=== PATIENT | female | born 1950 | race Caucasian/White ===

== ENCOUNTER → 2020-01-31 | Outpatient (CLI) | payer MEDICARE ==
[~2020-01-31] MED LIST: GABA-1171 PO
--- NOTE | 2020-02-02 23:26 | ECWPNPC ---
PATIENT NAME: DONNA CLINTON : 1950 GENDER: FEMALE VISIT DATE: 01/31/2020 DISCHARGE DATE: 01/31/20 1027 VISIT LOCKED DATE TIME: PHYSICIAN: KLAUS RAYGOZA RESOURCE: KLAUS RAYGOZA REASON FOR APPOINTMENT 1. LUMBAR SPINE HISTORY OF PRESENT ILLNESS GENERAL: - 69-YEAR-OLD FEMALE IN FOR INITIAL PAIN CONSULT. PATIENT HAS COMPLAINTS OF LOWER BACK PAIN RATING IT AT A 10 OUT OF 10 AND DESCRIBING IT SHOOTING. PATIENT EXPERIENCED A FALL IN OCTOBER WHICH WAS AN EXACERBATION OF HER LOW BACK PAIN. PATIENT HAS NOT HAD INJECTIONS IN THE PAST FOR HER PAIN HOWEVER SHE WAS STARTED ON OXYCODONE AND ADMITS THAT THIS MEDICATION HAS BEEN EFFECTIVE IN MANAGING HER PAIN. SHE FURTHER ADMITS TO A CURRENT UTI FOR WHICH SHE IS TAKING CIPROFLOXACIN FOR SHE WILL COMPLETE HER CIPRO COURSE ON FEBRUARY 04. FALL RISK SCREENING: SCREENING :ONE FALL WITHOUT INJURY IN THE PAST YEAR PAIN SCREENING: PATIENT HAS A COMPLAINT OF ACUTE OR CHRONIC PAIN :YES LOCATION OF PAIN:LOW BACK INTENSITY OF PAIN (SCALE OF 1 TO 10):10 WHAT DOES YOUR PAIN FEEL LIKE:SHOOTING DURATION:CONTINOUS, CONSTANT, ALL DAY, MAINLY DURING THE NIGHT, AWAKENS FROM SLEEP PAIN IS INCREASED BY:ACTIVITIES, PROLONGED STANDING PAIN IS DECREASED BY:USE OF PAIN MEDICATIONS TYLENOL PLAN/GOALS/TREATMENT/INTERVENTION/FOLLOW UP:SEE PLAN NURSING NOTE: - -. PAIN CENTER INTAKE QUESTIONS: DO YOU HAVE A HISTORY OF MRSA? :NO DO YOU TAKE A BLOOD THINNERS? :NO DO YOU HAVE ANY BLEEDING DISORDERS? :NO ANY NEW NUMBNESS OR WEAKNESS IN YOUR LEGS OR ARMS? :NO ANY PACEMAKER,DEFIBRILLATOR, OR DORSAL COLUMN STIMULATOR? :NO DO YOU HAVE ANY RASHES OR OPEN SORES? :NO ARE YOU ALLERGIC TO IV DYE? :NO ARE YOU DIABETIC? :NO ANY NEW PROBLEMS WITH YOUR MEDICATIONS? :NO HAVE YOU RECEIVED A VACCINE IN THE PAST 30 DAYS? :NO DO YOU PLAN TO RECEIVE A VACCINE IN THE NEXT 21 DAYS? :NO DO YOU NEED ANY PRESCRIPTION? :NO DO YOU TAKE ANY IMMUNOSUPPRESSIVE MEDICATIONS? :NO CURRENT MEDICATIONS TAKING NAPROXEN 500 MG TABLET DELAYED RELEASE 1 TABLET ORALLY TWICE A DAY TAKING CYCLOBENZAPRINE HCL 10 MG TABLET 1 TABLET AT BEDTIME NEEDED ORALLY THREE TIMES DAILY TAKING LOSARTAN POTASSIUM 50 MG TABLET 1 TABLET ORALLY ONCE A DAY TAKING LORAZEPAM 1 MG TABLET 1 TABLET AT BEDTIME NEEDED ORALLY ONCE A DAY, NOTES: UNSURE OF DOSAGE TAKING FUROSEMIDE 20 MG TABLET 1 TABLET ORALLY ONCE A DAY, NOTES: UNSURE OF USAGE TAKING CORTISONE SHOTS 3-4MONTHS MEDICATION LIST REVIEWED AND RECONCILED WITH THE PATIENT PAST MEDICAL HISTORY HYPERTENSION ANXIETY DEPRESSION ALLERGIES N.K.D.A. SURGICAL HISTORY NO SURGICAL HISTORY DOCUMENTED. FAMILY HISTORY FATHER: MOTHER: SON(S): ALIVE DAUGHTER(S): ALIVE 2 SON(S) , 2 DAUGHTER(S) - HEALTHY. SOCIAL HISTORY GENERAL: TOBACCO USE ARE YOU A:NONSMOKER LATEX QUESTIONNAIRE LATEX ALLERGY : HAVE YOU EVER DEVELOPED ANY TYPE OF REACTION AFTER HANDLING LATEX PRODUCTS SUCH RUBBER GLOVES, CONDOMS, DIAPHRAGMS, BALLOONS, SOCKS, OR UNDERWEAR?NO LATEX ALLERGY : HAVE YOU EVER DEVELOPED ANY TYPE OF REACTION DURING OR AFTER DENTAL APPOINTMENT, VAGINAL/RECTAL EXAMINATION, SURGICAL PROCEDURE, OR ANY OTHER EXPOSURE?NO LATEX RISK : HAVE YOU EVER HAD ANY DIFFICULTY BREATHING OR HIVES AFTER EATING OR HANDLING ANY FRUITS, OR VEGETABLES; SUCH KIWI, BANANAS, STONE FRUITS, OR CHESTNUTSNO LATEX RISK : DO YOU HAVE A PREVIOUS PERSONAL HISTORY OF MORE THAN NINE SURGERIES, SPINA BIFIDA, OR REPEATED CATHERIZATIONS? NO LATEX RISK : ARE YOU FREQUENTLY EXPOSED TO LATEX PRODUCTS IN YOUR OCCUPATION?NO DATE ASKED : 01/31/2020 ALCOHOL SCREENING DID YOU HAVE A DRINK CONTAINING ALCOHOL IN THE PAST YEAR?NO POINTS0 INTERPRETATIONNEGATIVE RECREATIONAL DRUG USE DRUG USE?NO CAFFEINE CAFFEINE USE?YES HOW OFTEN AND HOW MUCH? OCCASIONALLY LANGUAGE LANGUAGES SPOKEN:UGANDAN LEARNING BARRIERS / SPECIAL NEEDS CHANGE FROM LAST VISIT?NO BARRIERS TO LEARNING?NO HEARING IMPAIRED?NO VISION IMPAIRED?YES :CORRECTIVE LENSES COGNITIVELY IMPAIRED?NO READINESS TO LEARN?YES LEARNING PREFERENCES?NO LEARNING CAPABILITIES PRESENT?YES EMOTIONAL BARRIERS?NO SPECIAL DEVICES?YES :WALKER PROOF TECHNICIAN HELPER NEEDED?NO MARITAL STATUS: . NEW PATIENT PAIN DIARY PATIENT DESCRIBES PAIN :SHOOTING FROM 0-10, WHAT LEVEL IS YOUR PAIN TODAY?10 PAIN CLINIC PFS, CLERGY, PUBLIC HEALTH REFERRALS PFS REFERRAL NEEDED?NO CLERGY REFERRAL NEEDED?NO PUBLIC HEALTH REFERRAL NEEDED?NO WAS THE PROVIDER NOTIFIED OF ANY PERTINENT INFO?YES HAS THE PATIENT BEEN EDUCATED REGARDING HIS/HER PLAN OF CARE?YES HAS THE PATIENT BEEN EDUCATED REGARDING PAIN, THE RISK FOR PAIN, THE IMPORTANCE OF EFFECTIVE PAIN MANAGEMENT, AND THE PAIN ASSESSMENT PROCESS?YES DECLINES HOSPITALIZATION/MAJOR DIAGNOSTIC PROCEDURE NO HOSPITALIZATION HISTORY. REVIEW OF SYSTEMS CONSTITUTIONAL: ANY RECENT FEVER NO . CHILLS NO . WEIGHT CHANGE OF UNKNOWN REASONS NO . MUSCULOSKELETAL: ANY UNUSUAL JOINT PAIN OR SWELLING NOT MENTIONED NO . SYSTEMIC LUPUS NO . ANY NEUROMUSCULAR DISORDER NOT MENTIONED NO . LYME DISEASE NO . GASTROENTEROLOGY: ANY NEW CHANGE IN BOWEL CONTROL? NO . HISTORY OF LIVER DISORDER NOT MENTIONED NO . HISTORY OF UNUSUAL ABDOMINAL PAIN OR CRAMPING NOT MENTIONED NO . NO CONSTIPATION. GENITOURINARY: ANY NEW CHANGE IN BLADDER CONTROL? NO . ANY RENAL/KIDNEY CONDITON NOT MENTIONED NO . NEUROLOGY: HISTORY OF TBI NOT MENTIONED NO . OTHER NEW NUMBNESS OR PAIN PATTERNS NOT MENTIONED NO . NEW ONSET DIZZINESS OR NEUROLOGICAL CHANGES NOT MENTIONED NO . HISTORY OF SEVERE HEADACHES NOT MENTIONED NO . HISTORY OF STROKE OR NEUROLOGICAL DISORDER NOT MENTIONED NO . CARDIOLOGY: HEART SURGERY NO . CONGESTIVE HEART FAILURE/FLUID OVERLOAD NOT MENTIONED NO . HISTORY OF CHEST PAIN,IRREGULAR HEART BEAT NOT MENTIONED NO . RESPIRATORY: SHORTNESS OF BREATH ON EXERTION, WHEEZES, UNUSUAL COUGH NOT MENTIONED NO . ENDOCRINOLOGY: ADRENAL GLAND OR THYROID DISORDERS NOT MENTIONED NO . UNUSUAL URINATION, DIZZINESS OR LETHARGY NOT MENTIONED NO . VITAL SIGNS WT 255.0 LBS, HT 50 IN, BMI 71.71 INDEX, BP 143/66 MM HG, HR 106 /MIN, RR 18 /MIN, TEMP 97.0 F, OXYGEN SAT % 97%, SAFE IN ENV? (Y/N) Y, NA INITIALS AW [id number] ASUMADU CLINICAL TRIAL MANAGER. EXAMINATION GENERAL EXAMINATION: GENERALNO ACUTE DISTRESS, WELL NOURISHED AND HYDRATED. PSYCHAPPROPRIATE MOOD AND AFFECT . LUNGS:CLEAR TO AUSCULTATION BILATERALLY, NO WHEEZES, RHONCHI, RALES. HEART:NO MURMURS, REGULAR RATE AND RHYTHM. BACK: POINT TENDER LEFT SIJ, + GIANNA'S TEST LEFT SIDE. ASSESSMENTS SACROILIITIS, NOT ELSEWHERE CLASSIFIED - M46.1 TREATMENT SACROILIITIS, NOT ELSEWHERE CLASSIFIED NOTES: LEFT SIJ. CLINICAL NOTES: 69-YEAR-OLD FEMALE IN FOR NEW PATIENT CONSULT. GIVEN PRESENTING SYMPTOMS AND RESULTS PHYSICAL EXAMINATION RECOMMENDED LEFT SIJ WITH POSTPROCEDURAL FOLLOW-UP. FURTHER RECOMMENDED TIZANIDINE 2 MG 3 TIMES A DAY NEEDED. PATIENT HAS EXPRESSED UNDERSTANDING OF AND WAS IN AGREEMENT WITH TREATMENT PLAN. GIVEN TIME TO ASK QUESTIONS AND EXPRESS CONCERNS. OTHERS STOP CYCLOBENZAPRINE HCL TABLET, 10 MG, 1 TABLET AT BEDTIME NEEDED, ORALLY, THREE TIMES DAILY START TIZANIDINE HCL TABLET, 2 MG, 1 TABLET NEEDED, ORALLY, THREE TIMES A DAY, 10 DAYS, 30 TABLET PROCEDURE CODES FA211 ESTABILISHED PATIENT [facility] CHARGE DISPOSITION & COMMUNICATION FOLLOW UP POSTPROCEDURE (REASON: LEFT SIJ ) ELECTRONICALLY SIGNED BY KARY NGUYEN ON 02/02/2020 AT 07:51 AM EDT DISCLAIMER : THIS IS A VISIT SUMMARY EXTRACTED FROM THE [employer] CHART. IT IS NOT A COPY OF THE [employer] PROGRESS NOTE. ABBYD
== END ==
LOC: M PAIN 09:30
PROVIDERS: ATTEND Family Medicine
DX: M46.1 Sacroiliitis, not elsewhere classified (principal); Z79.899 Other long term (current) drug therapy

== ENCOUNTER → 2020-02-06 | Outpatient (CLI) | payer MEDICARE | LOC: M LABSMTC 10:01 | PROVIDERS: ATTEND Anesthesiology | DX: Z03.818 Encounter for observation for suspected exposure to other biological agents ruled out (principal) | CPT/HCPCS: C9803; U0003 ==

== ENCOUNTER → 2020-02-09 | Outpatient (CLI) | payer MEDICARE ==
[~2020-02-09] MED LIST changes: +BUPIVACAINE HCL 0.25% 30ML VIAL As Ordered ONE; +ISOVUE-M 300 61% 15ML VIAL As Ordered ONE; +LIDOCAINE 1% SDV 30ML VIAL As Ordered ONE; +NORCO, ANEXSIA 5/325MG TABLET (HYDROcodone/ACETAMINOPHEN) As Ordered ONE; +TRIAMCINOLONE ACETONIDE SUSP 40 MG/ML VIAL (J3301) As Ordered ONE; +diazePAM 5 MG TAB As Ordered ONE
--- NOTE | 2020-02-09 15:53 | REP ---
Left SI joint: Three views. History: SI joint injection for pain. 51 seconds of fluoroscopy time is reported. Findings: A sequence of three last image hold fluoroscopically obtained spot radiographs of the left SI joint document needle position and contrast injection associated with SI joint injection procedure. Electronically Signed by Singh Gage MD 02/09/2020 10:39 A
--- NOTE | 2020-02-16 00:56 | ECWPNPC ---
PATIENT NAME: DONNA CLINTON : 1950 GENDER: FEMALE VISIT DATE: 02/09/2020 DISCHARGE DATE: 02/09/20 1059 VISIT LOCKED DATE TIME: PHYSICIAN: FRAN MASON MD RESOURCE: FRAN MASON MD REASON FOR APPOINTMENT 1. LEFT SIJ/PAT DONE HISTORY OF PRESENT ILLNESS GENERAL: -. FALL RISK SCREENING: SCREENING :TWO OR MORE FALLS WITH INJURY IN THE PAST YEAR PAIN SCREENING: PATIENT HAS A COMPLAINT OF ACUTE OR CHRONIC PAIN :YES LOCATION OF PAIN:LOW BACK LEFT BUTTOCKS INTENSITY OF PAIN (SCALE OF 1 TO 10):10 WHAT DOES YOUR PAIN FEEL LIKE:ACHING, CONTINOUS, SHARP, STABBING, TENDER, SORE, SHOOTING, OTHER SPASMS/KNOT DURATION:CONTINOUS, CONSTANT, STEADY, ALL DAY, AWAKENS FROM SLEEP PAIN IS INCREASED BY:OTHERS PROLONGED SITTING, WALKING PAIN IS DECREASED BY: WARM SHOWER, HEAT AND ICE NURSING NOTE: -. PAIN CENTER INTAKE QUESTIONS: DO YOU HAVE A HISTORY OF MRSA? :NO DO YOU TAKE A BLOOD THINNERS? :NO DO YOU HAVE ANY BLEEDING DISORDERS? :NO ANY NEW NUMBNESS OR WEAKNESS IN YOUR LEGS OR ARMS? :NO ANY PACEMAKER,DEFIBRILLATOR, OR DORSAL COLUMN STIMULATOR? :NO DO YOU HAVE ANY RASHES OR OPEN SORES? :NO ARE YOU ALLERGIC TO IV DYE? :NO ARE YOU DIABETIC? :NO ANY NEW PROBLEMS WITH YOUR MEDICATIONS? :NO HAVE YOU RECEIVED A VACCINE IN THE PAST 30 DAYS? :NO DO YOU PLAN TO RECEIVE A VACCINE IN THE NEXT 21 DAYS? :NO DO YOU TAKE ANY IMMUNOSUPPRESSIVE MEDICATIONS? :NO ANY HISTORY OF SEIZURES? :NO ANY HISTORY OF CARDIAC ISSUES OR EVENTS? :NO DO YOU HAVE SLEEP APNEA? :NO ANY RECENT HEAD INJURY? :NO DO YOU HAVE ANY NEW INFECTIONS? :YES UTI-ASYMPTOMATIC AND WAS TREATED WITH CIPROFLOXIN IS THERE A CHANCE YOU COULD BE ? :NO ARE YOU BREAST FEEDING? :NO WHEN DID YOU LAST EAT? : -02/07 1800 WHEN DID YOU LAST DRINK? : -02/08 0630 WHAT DID YOU LAST DRINK? : -WATER NAME OF PERSON DRIVING YOU HOME? : -SERENA DO YOU HAVE ANY OTHER QUESTIONS OR CONCERNS? : NO CURRENT MEDICATIONS TAKING NAPROXEN 500 MG TABLET DELAYED RELEASE 1 TABLET ORALLY TWICE A DAY, NOTES: 02/07 0800 TAKING LOSARTAN POTASSIUM 50 MG TABLET 1 TABLET ORALLY ONCE A DAY, NOTES: 02/08 800 TAKING LORAZEPAM 0.5 MG TABLET 1 TAB ORALLY THREE TIMES DAILY NEEDED, NOTES: 02/08 800 TAKING CORTISONE SHOTS 3-4MONTHS, NOTES: NOVEMBER TAKING TIZANIDINE HCL 2 MG TABLET 1 TABLET NEEDED ORALLY THREE TIMES A DAY, NOTES: 02/07 2300 TAKING TRIAMTERENE-HCTZ 37.5-25 MG TABLET 1 TABLET IN THE MORNING ORALLY ONCE A DAY, NOTES: 02/08 800 TAKING ACETAMINOPHEN 500 MG CAPSULE 2 CAPS ORALLY EVERY 6 HRS NEEDED, NOTES: 02/07 2300 NOT-TAKING FUROSEMIDE 20 MG TABLET 1 TABLET ORALLY ONCE A DAY, NOTES: UNSURE OF USAGE MEDICATION LIST REVIEWED AND RECONCILED WITH THE PATIENT PAST MEDICAL HISTORY HYPERTENSION ANXIETY DEPRESSION LOW BACK PAIN/SACROILIITIS UTI ALLERGIES N.K.D.A. SURGICAL HISTORY D&C 1973 FAMILY HISTORY FATHER: MOTHER: SON(S): ALIVE DAUGHTER(S): ALIVE 2 SON(S) , 2 DAUGHTER(S) - HEALTHY. SOCIAL HISTORY GENERAL: TOBACCO USE ARE YOU A:NONSMOKER LATEX QUESTIONNAIRE LATEX ALLERGY : HAVE YOU EVER DEVELOPED ANY TYPE OF REACTION AFTER HANDLING LATEX PRODUCTS SUCH RUBBER GLOVES, CONDOMS, DIAPHRAGMS, BALLOONS, SOCKS, OR UNDERWEAR?NO LATEX ALLERGY : HAVE YOU EVER DEVELOPED ANY TYPE OF REACTION DURING OR AFTER DENTAL APPOINTMENT, VAGINAL/RECTAL EXAMINATION, SURGICAL PROCEDURE, OR ANY OTHER EXPOSURE?NO LATEX RISK : HAVE YOU EVER HAD ANY DIFFICULTY BREATHING OR HIVES AFTER EATING OR HANDLING ANY FRUITS, OR VEGETABLES; SUCH KIWI, BANANAS, STONE FRUITS, OR CHESTNUTSNO LATEX RISK : DO YOU HAVE A PREVIOUS PERSONAL HISTORY OF MORE THAN NINE SURGERIES, SPINA BIFIDA, OR REPEATED CATHERIZATIONS? NO LATEX RISK : ARE YOU FREQUENTLY EXPOSED TO LATEX PRODUCTS IN YOUR OCCUPATION?NO DATE ASKED : 02/08/2020 ALCOHOL SCREENING DID YOU HAVE A DRINK CONTAINING ALCOHOL IN THE PAST YEAR?NO POINTS0 INTERPRETATIONNEGATIVE RECREATIONAL DRUG USE DRUG USE?NO CAFFEINE CAFFEINE USE?YES HOW OFTEN AND HOW MUCH? OCCASIONALLY LANGUAGE LANGUAGES SPOKEN:GERMAN LEARNING BARRIERS / SPECIAL NEEDS CHANGE FROM LAST VISIT?NO BARRIERS TO LEARNING?NO HEARING IMPAIRED?NO VISION IMPAIRED?YES :CORRECTIVE LENSES COGNITIVELY IMPAIRED?NO READINESS TO LEARN?YES LEARNING PREFERENCES?NO LEARNING CAPABILITIES PRESENT?YES EMOTIONAL BARRIERS?NO SPECIAL DEVICES?YES :WALKER SHOE CEMENTER NEEDED?NO DOMESTIC VIOLENCE DO YOU FEEL SAFE IN YOUR ENVIRONMENT?YES MARITAL STATUS: . PAIN CLINIC PFS, CLERGY, PUBLIC HEALTH REFERRALS PFS REFERRAL NEEDED?NO CLERGY REFERRAL NEEDED?NO PUBLIC HEALTH REFERRAL NEEDED?NO HAS THE PATIENT BEEN EDUCATED REGARDING HIS/HER PLAN OF CARE?YES HAS THE PATIENT BEEN EDUCATED REGARDING PAIN, THE RISK FOR PAIN, THE IMPORTANCE OF EFFECTIVE PAIN MANAGEMENT, AND THE PAIN ASSESSMENT PROCESS?YES ADVANCE DIRECTIVE ADVANCE DIRECTIVE DISCUSSED WITH PATIENT:YES 02/08/2020 STATES SHE HAS HC-, SERENA [phone] AND LIVING WILL SHE WILL BRING THESE IN WITH HER 02/08 HOSPITALIZATION/MAJOR DIAGNOSTIC PROCEDURE CHILDBIRTH VITAL SIGNS WT 253.4 LBS, HT 50 IN, BMI 71.26 INDEX, BP 146/65 MM HG, HR 115 /MIN, RR 18 /MIN, TEMP 97.6 F, OXYGEN SAT % 98%, NA INITIALS SC 09:06, REVIEWED BY: BRAYAN. EXAMINATION GENERAL EXAMINATION: THE PATIENT IS ALERT, ORIENTED TIMES THREE AND COOPERATIVE. HEART SHOWS REGULAR RHYTHM, NO MURMURS AND NO GALLOPS. LUNGS ARE CLEAR TO AUSCULTATION. ASSESSMENTS SACROILIITIS, NOT ELSEWHERE CLASSIFIED - M46.1 (PRIMARY) SACROILIAC JOINT DYSFUNCTION - M53.3 TREATMENT SACROILIITIS, NOT ELSEWHERE CLASSIFIED [facility] FLUORO GUIDANCE (PAIN)[id number] MEDICATION: NORCO TABLET 5MG/325MG ORALLY (HYDROCODONE/ACETAMINOPHEN)MONA NELSON 02/09/2020 9:26:41 AM > VERIFIED HIRA CH 02/09/2020 9:28:53 AM > LOT [id number] EXP 04/2021 GIVEN MEDICATION: VALIUM TAB 5MG ORALLY (DIAZEPAM)MONA NELSON 02/09/2020 9:27:04 AM > VERIFIED HIRA CH 02/09/2020 9:29:41 AM > LOT [id number] EXP 10/01 GIVEN SALINE LOCKSOHIRA STANFORD 02/09/2020 9:41:50 AM > #22 SALINE LOCK STARTED IN LEFT HAND, 1ST ATTEMPT. FLUSHES EASILY WITH NORMAL SALINE, SITE WITHOUT REDNESS, SWELLING OR DRAINAGE. DSD APPLIED. BRAYAN SACROILIAC JOINT DYSFUNCTION [facility] FLUORO GUIDANCE (PAIN)[id number] PROCEDURES PAIN NURSING RECORD PRE-PROCEDURE IV SITE LEFT HAND, IV STARTED # 22, IV STARTED BY: Tracy CH RN, IV ATTEMPTS 1 PROCEDURE IN ROOM 0955, PHYSICIAN IN ROOM 1013, START 1017, FINISH 1019, PHYSICIAN OUT OF ROOM 1021, OUT OF ROOM 1030 VIA STRETCHER, STEROID KENALOG, O2 RA, ECG OTHER SINUS TACHYCARDIA, PATIENT SHIELDED YES, SAFETY STRAP YES, PREP CHLOROPREP, IV INFUSED N/A, DRESSING TEGADERM LOC: 1. ALERT, ORIENTED RESP: 1. REGULAR, NO DYSPNEA COLOR: 1. PINK SKIN: 1. WARM, DRY POSITION: 1. PRONE VITALS: 1000 117/80 102-18 94% 1015 121/84 101-18 96% 1040 127/77 101-18 97% DISCHARGE: POST PAIN 8, LEFT LOW BACK, DRESSING SITE DRY AND INTACT, IV DISCONTINUED, SITE CLEAR, CATHETER INTACT, GAIT OTHER 1040 PT STATES "I CAN HARDLY WALK", INDICATING HER LEFT GROIN. DR. MASON NOTIFIED, IN TO SPEAK WITH AND EVALUATE PATIENT. OK TO DISCHARGE WHEN PATIENT FEELS READY., TEACHING COMPLETED, PATIENT ACKNOWLEDGES UNDERSTANDING YES, PATIENT DISCHARGED AT 1057 PT AMBULATING WITH WHEELED WALKER, DENIES FEELING UNSTEADY OR WEAK. DISCHARGED PN SI PRE PROCEDURE DIAGNOSIS SACROILIITIS, SACROILIAC JOINT DYSFUNCTION POST PROCEDURE DIAGNOSIS SACROILIITIS, SACROILIAC JOINT DYSFUNCTION PROCEDURE LEFT SACROILIAC JOINT BLOCK SURGEON DR. FRAN MASON THERMOSPRAY OPERATOR NONE ANESTHESIA LOCAL PRE PROCEDURE NOTE THE PATIENT WITH HISTORY OF CHRONIC LOW BACK PAIN. I EVALUATED THE PATIENT AND REVIEWED THE CHART. I WENT OVER THE RISKS, ALTERNATIVES, AND BENEFITS ASSOCIATED WITH THIS PROCEDURE. I DISCUSSED THAT THE USE OF STEROIDS MAY CONTRIBUTE TO IMMUNOSUPPRESSION OF THE PATIENT'S BODY AGAINST INFECTIONS SUCH COVID-19. THE PATIENT IS AWARE OF THE POTENTIAL COMPLICATIONS ASSOCIATED WITH THIS VIRUS, INCLUDING, BUT NOT LIMITED TO, . I DISCUSSED THE USE OF DEXAMETHASONE INSTEAD OF KENALOG; HOWEVER, THE PATIENT WOULD LIKE TO MOVE FORWARD WITH KENALOG. THE PATIENT WOULD LIKE TO PROCEED AND GAVE CONSENT TO PERFORM THE PROCEDURE. THE PATIENT DENIES UNEXPLAINABLE WEIGHT LOSS, FEVER, CHILLS, OR NEW CHANGES IN URINARY OR BOWEL CONTROL. THE PATIENT IS COVID-19 NEGATIVE DESCRIPTION OF PROCEDURE THE PATIENT WAS BROUGHT TO THE PROCEDURE ROOM AND PLACED IN THE PRONE POSITION. THE LUMBOSACRAL AREA WAS CLEANED WITH CHLORAPREP SOLUTION AND DRAPED ASEPTICALLY. THE PROCEDURE WAS DONE UNDER STERILE CONDITIONS. I CHECKED LATERALITY AND THE LEVEL WHERE THE PROCEDURE WAS GOING TO BE PERFORMED WITH THE PATIENT AND THE SUPPORTING STAFF AT THE MOMENT OF THE TIME OUT IN THE PROCEDURE ROOM. UNDER FLUOROSCOPIC GUIDANCE, TARGET POINT WAS SELECTED AT THE LOWER BORDER OF THE LEFT SACROILIAC JOINT. TARGET POINT WAS SELECTED AFTER MEDIAL ROTATION AND TILT OF THE MAGNIFIER OF THE C-ARM. LIDOCAINE WAS USED TO NUMB THE SKIN AND SUBCUTANEOUS TISSUE BELOW IT. A SPINAL NEEDLE, 22-GAUGE, WAS ADVANCED UNDER FLUOROSCOPIC GUIDANCE AND FOLLOWING PATIENT FEEDBACK UNTIL THE TARGET AREA WAS TOUCHED. THE POSITION OF THE NEEDLE WAS VERIFIED WITH AP AND LATERAL VIEWS. AFTER PROPER POSITION OF THE NEEDLE WAS ACHIEVED, ISOVUE M DYE 30%, 0.25 ML, WAS INJECTED SHOWING SPREAD OF THE DYE. THEN, A SOLUTION OF 20 MG OF KENALOG WAS INJECTED IN THE LEFT JOINT WITH 3 ML OF BUPIVACAINE 0.125%. THERE WAS NO EVIDENCE OF BLOOD, PARESTHESIA OR CEREBROSPINAL FLUID DURING THE PROCEDURE. THE PATIENT WAS SENT TO THE RECOVERY ROOM. THE PATIENT WAS MOVING THE EXTREMITIES AND DOING WELL. THERE WAS NO COMPLICATION DURING THE PROCEDURE. EBL LESS THAN 5 ML FLUOROSCOPY TIME WAS 51 SECONDS POST PROCEDURE NOTE THE PROCEDURE DONE WAS DISCUSSED WITH THE PATIENT. THE PATIENT WILL BE SEEN IN A FOLLOW UP IN THE NEXT FEW WEEKS. I AM LOOKING FOR LONG LASTING PAIN RELIEF FOR THE PATIENT WITH THIS INTERVENTION. INSTRUCTIONS WERE GIVEN, QUESTIONS WERE ANSWERED, AND THE PATIENT EXPRESSED UNDERSTANDING AND AGREES WITH THE PLAN. THE PATIENT IS AWARE TO STAY HOME FOR THE NEXT WEEK, IF POSSIBLE, DUE TO COVID-19. I, VANESSA LOPEZ, DOCUMENTED THE ABOVE INFORMATION ACTING A SCRIBE FOR DR. MASON. I HAVE REVIEWED THE ABOVE DOCUMENT, WRITTEN BY VANESSA LOPEZ, METAL MINER BLASTING, AND I VERIFY THAT IT IS ACCURATE PROCEDURE CODES 15706 INJECT SACROILIAC JOINT, MODIFIERS: LT DISPOSITION & COMMUNICATION FOLLOW UP F/UP WITH MARKETING RECRUITER (REASON: POST LT SIJ) ELECTRONICALLY SIGNED BY FRAN MASON MD, MD ON 02/15/2020 AT 06:30 PM EDT DISCLAIMER : THIS IS A VISIT SUMMARY EXTRACTED FROM THE [employer] CHART. IT IS NOT A COPY OF THE [employer] PROGRESS NOTE. WALKER
== END ==
LOC: M PAIN 09:30
PROVIDERS: ATTEND Anesthesiology
DX: M46.1 Sacroiliitis, not elsewhere classified (principal); M53.3 Sacrococcygeal disorders, not elsewhere classified
CPT/HCPCS: G0260; J3301; Q9967

== ENCOUNTER → 2020-02-29 | Outpatient (CLI) | payer MEDICARE, OTHER ==
[~2020-02-29] MED LIST changes: -BUPIVACAINE HCL 0.25% 30ML VIAL As Ordered ONE; -ISOVUE-M 300 61% 15ML VIAL As Ordered ONE; -LIDOCAINE 1% SDV 30ML VIAL As Ordered ONE; -NORCO, ANEXSIA 5/325MG TABLET (HYDROcodone/ACETAMINOPHEN) As Ordered ONE; -TRIAMCINOLONE ACETONIDE SUSP 40 MG/ML VIAL (J3301) As Ordered ONE; -diazePAM 5 MG TAB As Ordered ONE
--- NOTE | 2020-03-02 01:39 | ECWPNPC ---
PATIENT NAME: DONNA CLINTON : 1950 GENDER: FEMALE VISIT DATE: 02/29/2020 DISCHARGE DATE: 02/29/20 1407 VISIT LOCKED DATE TIME: PHYSICIAN: KLAUS RAYGOZA RESOURCE: KLAUS RAYGOZA REASON FOR APPOINTMENT 1. POST LEFT SIJ HISTORY OF PRESENT ILLNESS GENERAL: - 69-YEAR-OLD FEMALE IN FOR POST LEFT SIJ FOLLOW-UP. SHE RATES HER PAIN PREPROCEDURE AT A 10 OUT OF 10 AND POSTPROCEDURE AT A 6-8 OUT OF 10. SHE DOES FEEL THE PROCEDURE WAS HELPFUL. TODAY SHE ADMITS TO INCREASED PAIN ON THE RIGHT SIDE. FALL RISK SCREENING: SCREENING :NO FALLS REPORTED IN THE LAST YEAR PAIN SCREENING: PATIENT HAS A COMPLAINT OF ACUTE OR CHRONIC PAIN :YES [id number]-09/10, [id number]-1/10, TODAY-01/18 LOCATION OF PAIN:LOW BACK PROCEDURE DONE ON LEFT SIDE INTENSITY OF PAIN (SCALE OF 1 TO 10):6 RIGHT SIDE HURTS TODAY WHAT DOES YOUR PAIN FEEL LIKE:SHOOTING DURATION:CONTINOUS, CONSTANT, ALL DAY PAIN IS DECREASED BY:USE OF PAIN MEDICATIONS MUSCLE RELAXER(TIZANIDINE), TYLENOL WITH ARTHRITIS PAIN HAS INTERFERED WITH THE FOLLOWING:BATHING/DRESSING, MOOD, WALKING ABILITY, HOUSEWORK, SLEEP, RELATIONSHIP WITH OTHERS, TOILETING PLAN/GOALS/TREATMENT/INTERVENTION/FOLLOW UP:SEE PLAN NURSING NOTE: PT. STATED PROCEDURE DID HELP FOR ABOUT 2-3 DAYS THE MOST, NOT MUSH OF AN IMPROVEMENT.-. PAIN CENTER INTAKE QUESTIONS: DO YOU HAVE A HISTORY OF MRSA? :NO DO YOU TAKE A BLOOD THINNERS? :NO DO YOU HAVE ANY BLEEDING DISORDERS? :NO ANY NEW NUMBNESS OR WEAKNESS IN YOUR LEGS OR ARMS? :NO ANY PACEMAKER,DEFIBRILLATOR, OR DORSAL COLUMN STIMULATOR? :NO DO YOU HAVE ANY RASHES OR OPEN SORES? :NO ARE YOU ALLERGIC TO IV DYE? :NO ARE YOU DIABETIC? :NO ANY NEW PROBLEMS WITH YOUR MEDICATIONS? :NO HAVE YOU RECEIVED A VACCINE IN THE PAST 30 DAYS? :YES IF SO WHAT VACCINE AND WHEN? CORTISONE SHOTS A WEEK AGO DO YOU PLAN TO RECEIVE A VACCINE IN THE NEXT 21 DAYS? :NO DO YOU NEED ANY PRESCRIPTION? :NO DO YOU TAKE ANY IMMUNOSUPPRESSIVE MEDICATIONS? :NO IS THERE A CHANCE YOU COULD BE ? :NO ARE YOU BREAST FEEDING? :NO CURRENT MEDICATIONS TAKING NAPROXEN 500 MG TABLET DELAYED RELEASE 1 TABLET ORALLY ONCE A DAY, NOTES: 02/08 800 TAKING LOSARTAN POTASSIUM 50 MG TABLET 1 TABLET ORALLY ONCE A DAY, NOTES: 02/08 800 TAKING LORAZEPAM 0.5 MG TABLET 1 TAB ORALLY ONCE DAILY, NOTES: 02/08 800 TAKING CORTISONE SHOTS 3-4MONTHS, NOTES: NOVEMBER TAKING TRIAMTERENE-HCTZ 37.5-25 MG TABLET 1 TABLET IN THE MORNING ORALLY ONCE A DAY, NOTES: 02/08 800 TAKING ACETAMINOPHEN 500 MG CAPSULE 2 CAPS ORALLY EVERY 6 HRS NEEDED, NOTES: 02/07 2300 TAKING TIZANIDINE HCL 2 MG TABLET 1 TABLET NEEDED ORALLY THREE TIMES A DAY, NOTES: 02/07 2300 NOT-TAKING FUROSEMIDE 20 MG TABLET 1 TABLET ORALLY ONCE A DAY, NOTES: UNSURE OF USAGE MEDICATION LIST REVIEWED AND RECONCILED WITH THE PATIENT PAST MEDICAL HISTORY HYPERTENSION ANXIETY DEPRESSION LOW BACK PAIN/SACROILIITIS UTI ALLERGIES N.K.D.A. SURGICAL HISTORY D&C 1973 FAMILY HISTORY FATHER: MOTHER: SON(S): ALIVE DAUGHTER(S): ALIVE 2 SON(S) , 2 DAUGHTER(S) - HEALTHY. SOCIAL HISTORY GENERAL: TOBACCO USE ARE YOU A:NONSMOKER LATEX QUESTIONNAIRE LATEX ALLERGY : HAVE YOU EVER DEVELOPED ANY TYPE OF REACTION AFTER HANDLING LATEX PRODUCTS SUCH RUBBER GLOVES, CONDOMS, DIAPHRAGMS, BALLOONS, SOCKS, OR UNDERWEAR?NO LATEX ALLERGY : HAVE YOU EVER DEVELOPED ANY TYPE OF REACTION DURING OR AFTER DENTAL APPOINTMENT, VAGINAL/RECTAL EXAMINATION, SURGICAL PROCEDURE, OR ANY OTHER EXPOSURE?NO LATEX RISK : HAVE YOU EVER HAD ANY DIFFICULTY BREATHING OR HIVES AFTER EATING OR HANDLING ANY FRUITS, OR VEGETABLES; SUCH KIWI, BANANAS, STONE FRUITS, OR CHESTNUTSNO LATEX RISK : DO YOU HAVE A PREVIOUS PERSONAL HISTORY OF MORE THAN NINE SURGERIES, SPINA BIFIDA, OR REPEATED CATHERIZATIONS? NO LATEX RISK : ARE YOU FREQUENTLY EXPOSED TO LATEX PRODUCTS IN YOUR OCCUPATION?NO DATE ASKED : 02/29/2020 ALCOHOL SCREENING DID YOU HAVE A DRINK CONTAINING ALCOHOL IN THE PAST YEAR?NO POINTS0 INTERPRETATIONNEGATIVE RECREATIONAL DRUG USE DRUG USE?NO CAFFEINE CAFFEINE USE?YES HOW OFTEN AND HOW MUCH? OCCASIONALLY LANGUAGE LANGUAGES SPOKEN:[place] LEARNING BARRIERS / SPECIAL NEEDS CHANGE FROM LAST VISIT?NO BARRIERS TO LEARNING?NO HEARING IMPAIRED?NO VISION IMPAIRED?YES COGNITIVELY IMPAIRED?NO :CORRECTIVE LENSES READINESS TO LEARN?YES LEARNING PREFERENCES?NO LEARNING CAPABILITIES PRESENT?YES EMOTIONAL BARRIERS?NO SPECIAL DEVICES?YES :WALKER INSET CUTTER NEEDED?NO DOMESTIC VIOLENCE DO YOU FEEL SAFE IN YOUR ENVIRONMENT?YES MARITAL STATUS: . PAIN CLINIC PFS, CLERGY, PUBLIC HEALTH REFERRALS PFS REFERRAL NEEDED?NO CLERGY REFERRAL NEEDED?NO PUBLIC HEALTH REFERRAL NEEDED?NO HAS THE PATIENT BEEN EDUCATED REGARDING HIS/HER PLAN OF CARE?YES HAS THE PATIENT BEEN EDUCATED REGARDING PAIN, THE RISK FOR PAIN, THE IMPORTANCE OF EFFECTIVE PAIN MANAGEMENT, AND THE PAIN ASSESSMENT PROCESS?YES ADVANCE DIRECTIVE ADVANCE DIRECTIVE DISCUSSED WITH PATIENT:YES STATES SHE HAS HC-, SERENA [phone] AND LIVING WILL SHE WILL BRING THESE IN WITH HER 02/08 HOSPITALIZATION/MAJOR DIAGNOSTIC PROCEDURE CHILDBIRTH REVIEW OF SYSTEMS CONSTITUTIONAL: ANY RECENT FEVER NO . CHILLS NO . WEIGHT CHANGE OF UNKNOWN REASONS NO . GASTROENTEROLOGY: NEW UNEXPLAINABLE CHANGES IN BOWEL CONTROL NO . CONSTIPATION NO . GENITOURINARY: ANY NEW CHANGE IN BLADDER CONTROL? NO . NEUROLOGY: NEW ONSET DIZZINESS OR NEUROLOGICAL CHANGES NOT MENTIONED NO . NEW NUMBNESS OR PAIN PATTERNS NOT MENTIONED AND PERTINENT TO TODAY'S VISIT NO . CARDIOLOGY: NEW CHEST PRESSURE NO . NEW CHEST PAIN NO . RESPIRATORY: UNEXPLAINABLE COUGH NO . NEW SHORTNESS OF BREATH NO . VITAL SIGNS WT 252.6 LBS, HT 50 IN, BMI 71.03 INDEX, BP 130/61 MM HG, HR 107 /MIN, RR 18 /MIN, TEMP 98.1 F, OXYGEN SAT % 97%, SAFE IN ENV? (Y/N) Y, NA INITIALS AW [id number] ASUMADU CHARGE AUTHORIZER. EXAMINATION GENERAL EXAMINATION: GENERALNO ACUTE DISTRESS, WELL NOURISHED AND HYDRATED. PSYCHAPPROPRIATE MOOD AND AFFECT . LUNGS:CLEAR TO AUSCULTATION BILATERALLY, NO WHEEZES, RHONCHI, RALES. HEART:NO MURMURS, REGULAR RATE AND RHYTHM. BACK:POINT TENDER BILATERAL SIJ. ASSESSMENTS SACROILIITIS, NOT ELSEWHERE CLASSIFIED - M46.1 (PRIMARY) TREATMENT SACROILIITIS, NOT ELSEWHERE CLASSIFIED START GABAPENTIN CAPSULE, 100 MG, 1 CAPSULE, ORALLY, THREE TIMES DAILY, 30 DAY(S), 90 NOTES: BILATERAL SIJ. CLINICAL NOTES: 69-YEAR-OLD FEMALE IN FOR POST LEFT SIJ FOLLOW-UP. GIVEN PRESENTING SYMPTOMS RECOMMEND BILATERAL SIJ WITH POST PROCEDURAL FOLLOW-UP. ALSO RECOMMENDED STARTING GABAPENTIN 100 MG 3 TIMES A DAY. PATIENT HAS EXPRESSED UNDERSTANDING OF AND WAS IN AGREEMENT WITH TREATMENT PLAN. GIVEN TIME TO ASK QUESTIONS AND EXPRESS CONCERNS. PROCEDURE CODES FA211 ESTABILISHED PATIENT [facility] CHARGE DISPOSITION & COMMUNICATION FOLLOW UP POSTPROCEDURE (REASON: BILATERAL SIJ) ELECTRONICALLY SIGNED BY KARY NGUYEN ON 03/01/2020 AT 09:11 AM EDT DISCLAIMER : THIS IS A VISIT SUMMARY EXTRACTED FROM THE [employer] CHART. IT IS NOT A COPY OF THE [employer] PROGRESS NOTE. MTDD
== END ==
LOC: M PAIN 13:15
PROVIDERS: ATTEND Family Medicine
DX: M46.1 Sacroiliitis, not elsewhere classified (principal)

== ENCOUNTER → 2020-03-30 | Outpatient (POV) | payer OTHER, MEDICARE | LOC: M PAIN 14:15 | PROVIDERS: ATTEND Anesthesiology | DX: M47.816 Spondylosis without myelopathy or radiculopathy, lumbar region (principal) ==

== ENCOUNTER → 2020-04-14 | Outpatient (CLI) | payer MEDICARE, OTHER | LOC: M LABSMTC 09:32 | PROVIDERS: ATTEND Anesthesiology | DX: Z20.828 Contact with and (suspected) exposure to other viral communicable diseases (principal) | CPT/HCPCS: C9803; U0003 ==

== ENCOUNTER → 2020-05-03 | Outpatient (CLI) | payer MEDICARE, OTHER | LOC: M PAIN 09:40 | PROVIDERS: ATTEND Family Medicine | DX: M53.3 Sacrococcygeal disorders, not elsewhere classified (principal); Z79.899 Other long term (current) drug therapy ==

== ENCOUNTER → 2020-05-19 | Outpatient (CLI) | payer MEDICARE, OTHER | LOC: M LABSMTC 09:35 | PROVIDERS: ATTEND Anesthesiology | DX: Z20.828 Contact with and (suspected) exposure to other viral communicable diseases (principal) | CPT/HCPCS: C9803; U0003 ==

== ENCOUNTER → 2020-05-24 | Outpatient (CLI) | payer MEDICARE, OTHER ==
[~2020-05-24] MED LIST changes: +BUPIVACAINE HCL 0.25% 30ML VIAL As Ordered ONE; +ISOVUE-M 300 61% 15ML VIAL As Ordered ONE; +LIDOCAINE 1% SDV 30ML VIAL As Ordered ONE; +TRIAMCINOLONE ACETONIDE SUSP 40 MG/ML VIAL (J3301) As Ordered ONE; +diazePAM 5MG TABLET As Ordered ONE
--- NOTE | 2020-05-26 02:57 | ECWPNPC ---
PATIENT NAME: DONNA CLINTON : 1950 GENDER: FEMALE VISIT DATE: 05/24/2020 DISCHARGE DATE: 05/24/20 1231 VISIT LOCKED DATE TIME: PHYSICIAN: FRAN MASON MD RESOURCE: FRAN MASON MD REASON FOR APPOINTMENT 1. SACROCOCCYGEAL BLOCK HISTORY OF PRESENT ILLNESS GENERAL: -. FALL RISK SCREENING: SCREENING :ONE FALL WITH INJURY IN THE PAST YEAR FELL OFF A CURB LANDING ON HER BACK PAIN SCREENING: PATIENT HAS A COMPLAINT OF ACUTE OR CHRONIC PAIN :YES LOCATION OF PAIN:LOW BACK INTENSITY OF PAIN (SCALE OF 1 TO 10):10 AVERAGE PAIN 10+ WHAT DOES YOUR PAIN FEEL LIKE:CONTINOUS, SHARP, SHOOTING DURATION:CONTINOUS, CONSTANT, AWAKENS FROM SLEEP PAIN IS INCREASED BY:ACTIVITIES PAIN IS DECREASED BY:SITTING WALKING TREATMENT/MEDICATIONS USED TO MANAGE PAIN:NONE LEVEL OF RELIEF FROM PAIN TREATMENTS IN THE PAST:50% PAIN HAS INTERFERED WITH THE FOLLOWING:WALKING ABILITY, SLEEP, ENJOYMENT OF LIFE NURSING NOTE: -. PAIN CENTER INTAKE QUESTIONS: DO YOU HAVE A HISTORY OF MRSA? :NO DO YOU TAKE A BLOOD THINNERS? :NO DO YOU HAVE ANY BLEEDING DISORDERS? :NO ANY NEW NUMBNESS OR WEAKNESS IN YOUR LEGS OR ARMS? :NO ANY PACEMAKER,DEFIBRILLATOR, OR DORSAL COLUMN STIMULATOR? :NO DO YOU HAVE ANY RASHES OR OPEN SORES? :NO ARE YOU ALLERGIC TO IV DYE? :NO ARE YOU DIABETIC? :NO ANY NEW PROBLEMS WITH YOUR MEDICATIONS? :YES GABAPENTIN BACLOFEN BOTH MAKES PT SLEEPY AND DOESN'T HELP PAIN HAVE YOU RECEIVED A VACCINE IN THE PAST 30 DAYS? :NO DO YOU PLAN TO RECEIVE A VACCINE IN THE NEXT 21 DAYS? :NO DO YOU NEED ANY PRESCRIPTION? :NO DO YOU TAKE ANY IMMUNOSUPPRESSIVE MEDICATIONS? :NO ANY HISTORY OF SEIZURES? :NO ANY HISTORY OF CARDIAC ISSUES OR EVENTS? :NO DO YOU HAVE SLEEP APNEA? :NO ANY RECENT HEAD INJURY? :NO DO YOU HAVE ANY NEW INFECTIONS? :NO IS THERE A CHANCE YOU COULD BE ? :NO ARE YOU BREAST FEEDING? :NO WHEN DID YOU LAST EAT? : 05/23 2100 WHEN DID YOU LAST DRINK? : 05/24 0600 WHAT DID YOU LAST DRINK? : WATER NAME OF PERSON DRIVING YOU HOME? : SERENA DO YOU HAVE ANY OTHER QUESTIONS OR CONCERNS? : NONE CURRENT MEDICATIONS TAKING NAPROXEN 500 MG TABLET DELAYED RELEASE 1 TABLET ORALLY ONCE A DAY, NOTES: 05/23 900 TAKING LOSARTAN POTASSIUM 50 MG TABLET 1 TABLET ORALLY ONCE A DAY, NOTES: 05/23 900 TAKING LORAZEPAM 0.5 MG TABLET 1 TAB ORALLY ONCE DAILY, NOTES: 04/23 900 TAKING CORTISONE SHOTS 3-4MONTHS, NOTES: 3 MONTHS AGO TAKING ACETAMINOPHEN 500 MG CAPSULE 2 CAPS ORALLY EVERY 6 HRS NEEDED, NOTES: 05/23 2200 TAKING GABAPENTIN 300 MG CAPSULE 1 CAPSULE ORALLY THREE TIMES DAILY, NOTES: 05/23 2200 TAKING TORSEMIDE 20 MG TABLET DIRECTED ORALLY TWICE DAILY, NOTES: 05/23 1500 TAKING BACLOFEN 20 MG TABLET 1 TABLET WITH FOOD OR MILK ORALLY EVERY 8 HRS NEEDED, NOTES: 05/23 2200 NOT-TAKING TRIAMTERENE-HCTZ 37.5-25 MG TABLET 1 TABLET IN THE MORNING ORALLY ONCE A DAY NOT-TAKING TIZANIDINE HCL 2 MG TABLET 1 TABLET NEEDED ORALLY THREE TIMES A DAY NOT-TAKING FUROSEMIDE 20 MG TABLET 1 TABLET ORALLY ONCE A DAY, NOTES: UNSURE OF USAGE MEDICATION LIST REVIEWED AND RECONCILED WITH THE PATIENT PAST MEDICAL HISTORY HYPERTENSION ANXIETY DEPRESSION LOW BACK PAIN/SACROILIITIS UTI ALLERGIES N.K.D.A. SURGICAL HISTORY D&C 1973 FAMILY HISTORY FATHER: MOTHER: SON(S): ALIVE DAUGHTER(S): ALIVE 2 SON(S) , 2 DAUGHTER(S) - HEALTHY. SOCIAL HISTORY GENERAL: TOBACCO USE ARE YOU A:NONSMOKER LATEX QUESTIONNAIRE LATEX ALLERGY : HAVE YOU EVER DEVELOPED ANY TYPE OF REACTION AFTER HANDLING LATEX PRODUCTS SUCH RUBBER GLOVES, CONDOMS, DIAPHRAGMS, BALLOONS, SOCKS, OR UNDERWEAR?NO LATEX ALLERGY : HAVE YOU EVER DEVELOPED ANY TYPE OF REACTION DURING OR AFTER DENTAL APPOINTMENT, VAGINAL/RECTAL EXAMINATION, SURGICAL PROCEDURE, OR ANY OTHER EXPOSURE?NO DATE ASKED : 02/29/2020 LATEX RISK : HAVE YOU EVER HAD ANY DIFFICULTY BREATHING OR HIVES AFTER EATING OR HANDLING ANY FRUITS, OR VEGETABLES; SUCH KIWI, BANANAS, STONE FRUITS, OR CHESTNUTSNO LATEX RISK : DO YOU HAVE A PREVIOUS PERSONAL HISTORY OF MORE THAN NINE SURGERIES, SPINA BIFIDA, OR REPEATED CATHERIZATIONS? NO LATEX RISK : ARE YOU FREQUENTLY EXPOSED TO LATEX PRODUCTS IN YOUR OCCUPATION?NO ALCOHOL SCREENING DID YOU HAVE A DRINK CONTAINING ALCOHOL IN THE PAST YEAR?NO POINTS0 INTERPRETATIONNEGATIVE RECREATIONAL DRUG USE DRUG USE?NO CAFFEINE CAFFEINE USE?YES HOW OFTEN AND HOW MUCH? OCCASIONALLY LANGUAGE LANGUAGES SPOKEN:FRISIAN LEARNING BARRIERS / SPECIAL NEEDS CHANGE FROM LAST VISIT?NO BARRIERS TO LEARNING?NO HEARING IMPAIRED?NO VISION IMPAIRED?YES :CORRECTIVE LENSES COGNITIVELY IMPAIRED?NO READINESS TO LEARN?YES LEARNING PREFERENCES?NO LEARNING CAPABILITIES PRESENT?YES EMOTIONAL BARRIERS?NO SPECIAL DEVICES?YES :WALKER PROGRESS DEVELOPER NEEDED?NO DOMESTIC VIOLENCE DO YOU FEEL SAFE IN YOUR ENVIRONMENT?YES MARITAL STATUS: . PAIN CLINIC PFS, CLERGY, PUBLIC HEALTH REFERRALS PFS REFERRAL NEEDED?NO CLERGY REFERRAL NEEDED?NO PUBLIC HEALTH REFERRAL NEEDED?NO HAS THE PATIENT BEEN EDUCATED REGARDING HIS/HER PLAN OF CARE?YES HAS THE PATIENT BEEN EDUCATED REGARDING PAIN, THE RISK FOR PAIN, THE IMPORTANCE OF EFFECTIVE PAIN MANAGEMENT, AND THE PAIN ASSESSMENT PROCESS?YES ADVANCE DIRECTIVE ADVANCE DIRECTIVE DISCUSSED WITH PATIENT:YES 05/24/20 STATES SHE HAS HCP-, SERENA [phone] AND LIVING WILL SHE WILL BRING THESE IN WITH HER HOSPITALIZATION/MAJOR DIAGNOSTIC PROCEDURE CHILDBIRTH D&C VITAL SIGNS WT 263.2 LBS, HT 50 IN, BMI 74.01 INDEX, BP 171/82 MM HG, HR 89 /MIN, RR 18 /MIN, TEMP 98.8 F, OXYGEN SAT % 97%, SAFE IN ENV? (Y/N) Y, NA INITIALS AW 0923, REVIEWED BY: AD. EXAMINATION GENERAL EXAMINATION: THE PATIENT IS ALERT, ORIENTED TIMES THREE AND COOPERATIVE. HEART SHOWS REGULAR RHYTHM, NO MURMURS AND NO GALLOPS. LUNGS ARE CLEAR TO AUSCULTATION. ASSESSMENTS COCCYODYNIA - M53.3 (PRIMARY) TREATMENT COCCYODYNIA START CARISOPRODOL TABLET, 350 MG, 1 TABLET NEEDED, ORALLY FOR SPASMS AND PAIN, EVERY 8 HOURS NEEDED MDD2, 5 DAYS, 10, REFILLS 0 [facility] FLUORO GUIDANCE (PAIN)[id number] OXYGEN AT 2 LITERS PER NASAL CANNULAVANESSA LOPEZ 05/24/2020 10:43:48 AM - 2 1/2 LITERS MEDICATION: VALIUM TAB 10MG ORALLY (DIAZEPAM)VICTORIA CARBONE 05/24/2020 9:46:42 AM > VERIFIED RISA BRADEN 05/24/2020 9:51:58 AM > LOT # [id number] EXP 10/2020 ADMINISTERED IV LACTATED RINGER'S AT RISA BARNES 05/24/2020 2:01:07 PM > TOTAL OF 125ML RL ADMINISTERED CLINICAL NOTES: ISTOP NUMBER [id number] CHECKED. OTHERS CLINICAL NOTES: 05/23/20 KAY LOTT, TRANSFORMER SHOP SUPERVISOR. PROCEDURES PAIN NURSING RECORD PRE-PROCEDURE IV SITE N/A, PRE-PROCEDURE ORAL MEDICATIONS SEE MEDICATION ORDERS : IV SITE N/A, PRE-PROCEDURE ORAL MEDICATIONS SEEN MEDICATION ORDERS PROCEDURE IN ROOM 1010 VIA STRETCHER, PHYSICIAN IN ROOM 1024, START 1029, FINISH 1051, PHYSICIAN OUT OF ROOM 1054, OUT OF ROOM 1107 VIA STRETCHER, STEROID KENALOG, O2 RA 2.5L/MIN ON AT 1040-OFF @ 1055, ECG NORMAL SINUS 1040 HR IN 60'S WITH OCC. PVC'S IV STARTED WITH 22G IN RIGHT HAND ON 1ST ATTEMPT. RL INFUSING WIDE OPEN PER DR. MASON. O2 ON 2.5 L/MIN VIA NC, PATIENT SHIELDED YES, SAFETY STRAP YES, PREP CHLOROPREP BY Rosamaria OSEI RN, IV INFUSED LACTATED RINGERS 125CC TOTAL, DRESSING TEGADERM BY DR. MASON LOC: RISA BRADEN 05/24/2020 10:02:19 AM > 1. ALERT, ORIENTED RESP: RISA BRADEN 05/24/2020 10:02:24 AM > 1. REGULAR, NO DYSPNEA COLOR: RISA BRADEN 05/24/2020 10:02:28 AM > 1. PINK SKIN: RISA BRADEN 05/24/2020 10:02:31 AM > 1. WARM, DRY POSITION: RISA BRADEN 05/24/2020 10:15:29 AM > 1. PRONE VITALS: RISA BRADEN 05/24/2020 10:15:49 AM > 145/86,96,18, 93% RISA BRADEN 05/24/2020 10:30:00 AM > 137/74,84,18, 93% RISA BRADEN 05/24/2020 10:43:53 AM >134/68, 74,18,97% (O2 2.5L/MIN) RISA BRADEN 05/24/2020 10:48:37 AM > 144/74,79, 18, 99%(O2 2.5L/MIN) RISA BRADEN 05/24/2020 10:50:40 AM > 160/84,82,18,98% O2 2.5L/MIN) SAMPSON,RISA 05/24/2020 10:57:39 AM >146/70,76,16,98% O2 OFF SAMPSON,RISA 05/24/2020 11:01:05 AM > 139/69,75,16,94% SAMPSON,RISA 05/24/2020 11:12:30 AM > 114/53,64,16,95% SAMPSON,RISA 05/24/2020 11:17:33 AM > 119/56,73,18,95% SAMPSON,RISA 05/24/2020 11:23:38 AM > 117/58,71,18,97% SAMPSON,RISA 05/24/2020 11:25:00 AM > 125/57,67,18,96% SAMPSON,[place] 05/24/2020 11:30:09 AM > 117/58,58,16,97% SAMPSON,[place] 05/24/2020 11:35:44 AM > 113/56,66,16,97% SAMPSON,[place] 05/24/2020 11:40:21 AM > 118/55,62,16,96% SAMPSON,[place] 05/24/2020 11:45:57 AM > 130/53,61,16,97% SAMPSON,[place] DENN[place] 05/24/2020 11:50:04 AM > 142/58,65,18,95% SAMPSON,[place] DENNIS 05/24/2020 12:03:31 PM > 122/57,60,16,98% SAMPSON,E[place] DENNIS 05/24/2020 12:10:16 PM > 122/57,61,18,94% NOTES 1024 DR. MASON AWARE OF RASH BETWEEN BUTTOCKS. AD 1040 HR DECREASED INTO THE 60'S, OCC. PVC'S, PT ASYMP. FOR DECREASED HEART RATE. IV STARTED PER ABOVE AND O2 APPLIED AD 1115 HR DOWN INTO THE HIGH 50'S, DR. MASON AWARE. IV AT KVO PER ORDER. 1125 DR. MASON INTO SEE PT. HR 58-PT ASYMP. AD [address] ALEX' NURSE, GIA, AND DISCUSSED WHAT PROCEDURE THE PT RECEIVED, BRADYCARDIA, PRESEDATE OF VAIUM AND TREATMENT PROVIDED. PT HAS AN APPT. THERE IN 2 WEEKS AND WILL BE INSTRUCTED TO GO TO ED OR UC FOR ANY CHEST PAIN OR NOT FEELING WELL. PT TO ALSO CALL DR. ALEX IF SHE FEELS SHE NEEDS TO SEE DR. ALEX SOONER. AD 1210 DR. MASON INTO SEE PT. OKAY TO DISCHARGE PT.AD DISCHARGE: POST PAIN 0-10+(WHEN HAVING SPASM), DRESSING SITE DRY AND INTACT, IV DISCONTINUED, SITE CLEAR, CATHETER INTACT, GAIT WHEELCHAIR USES WHEELING WALKER, TEACHING COMPLETED, PATIENT ACKNOWLEDGES UNDERSTANDING YES, PATIENT DISCHARGED AT 1230 : INTRA-OPERATIVE IMAGING INTERPRETATION WAS PERFORMED BY DR. MASON PRE PROCEDURE DIAGNOSIS 1. INFLAMMATION OF THE SACROCOCCYGEAL LIGAMENT. 2. COCCYDYNIA. POST PROCEDURE DIAGNOSIS 1. INFLAMMATION OF THE SACROCOCCYGEAL LIGAMENT. 2. COCCYDYNIA. PROCEDURE INJECTION OF THE RIGHT AND LEFT SACROCOCCYGEAL LIGAMENT. SURGEON DR. FRAN MASON BOOKKEEPING CLERK NONE ANESTHESIA LOCAL PRE PROCEDURE NOTE THE PATIENT HAS HISTORY OF LOW BACK PAIN. I EVALUATED THE PATIENT AND REVIEWED THE CHART. THE PATIENT IS AWARE OF THE POTENTIAL COMPLICATIONS INLCUDING BUT NOT LIMITED TO, INCLUDE INFECTIONS, VISCERAL PUNCTURE, INCLUDING RECTAL PUNCTURE. I DISCUSSED ALTERNATIVES AND THE PATIENT EXPRESSED WILLIINGNESS TO PROCEED. I DISCUSSED THAT THE USE OF STEROIDS MAY CONTRIBUTE TO IMMUNOSUPPRESSION OF THE PATIENT'S BODY AGAINST INFECTIONS SUCH COVID-19. THE PATIENT IS AWARE OF THE POTENTIAL COMPLICATIONS ASSOCIATED WITH THIS VIRUS, INCLUDING, BUT NOT LIMITED TO, . THE PATIENT DENIES UNEXPLAINABLE, WEIGHT LOSS, FEVER, CHILLS, OR CHANGES IN URINARY OR BOWEL CONTROL. THE PATIENT IS COVID-19 NEGATIVE DESCRIPTION OF PROCEDURE AFTER CONSENT WAS TAKEN, THE PATIENT WAS BROUGHT TO THE PROCEDURE ROOM AND PLACED IN THE PRONE POSITION. THE LUMBOSACRAL AREA WAS CLEANED WITH CHLORAPREP SOLUTION AND DRAPED ASEPTICALLY. THE PROCEDURE WAS DONE UNDER STERILE CONDITIONS. UNDER FLUOROSCOPIC GUIDANCE, THE TARGET WAS SELECTED AT THE RIGHT AND LEFT SACROCOCCYGEAL LIGAMENT. I CONFIRMED AGAIN WITH EVERYONE IN THE ROOM THE LATERALITY OF THE TARGET 1029. LIDOCAINE WAS USED TO NUMB THE SKIN AND THE SUBCUTANEOUS TISSUE BELOW IT. A 25 GAUGE NEEDLE WAS ADVANCED UNTIL WE REACHED THE RIGHT AND LEFT SACROCOCCYGEAL LIGAMENT. I DID AP AND LATERAL VIEWS. ISOVUE-M DYE 30%, 0.25 ML, WAS INJECTED SHOWING ADEQUATE SPREAD OF THE DYE. THEN A SOLUTION OF 30 ML OF BUPIVACAINE 0.125% WITH KENALOG 40 MG WAS INJECTED OVER THE AFFECTED STRUCTURE. THE MEDICATION WAS VERIFIED WITH THE NURSE. THERE WAS NO EVIDENCE OF BLOOD, PARESTHESIA OR CEREBROSPINAL FLUID. NO EVIDENCE OF VACUUM PHENOMENON OR VISCERAL PUNCTURE. THE PATIENT WAS SENT TO THE RECOVERY ROOM WHERE SHE WAS MOVING HER EXTREMITIES AND DOING WELL. THERE WERE NO COMPLICATIONS DURING THE PROCEDURE. EBL LESS THAN 5 ML. FLUOROSCOPY TIME WAS 15 SECONDS POST PROCEDURE NOTE THE PATIENT DEVELOPED SOME ARRHYTHMIA INCLUDING SOME PVCS AND REDUCTION OF HER HEART RATE. I DECIDED TO TAKE AN IV AND RUN LACTATED RINGERS AND GAVE THE PATIENT OXYGEN. I WILL INFORM THE PRIMARY CARE AFTER THE PROCEDURE. DEPENDING ON THE RESULT, WE SHOULD ORDER A PELVIC MRI WITH SPECIAL ATTENTION TO THE SACROCOCCYGEAL AREA. WE WILL NEED AN IV AND LACTATED RINGERS FOR EVERY PROCEDURE IN THE FUTURE. THE PATIENT WAS HAVING BAD SPASMS SO I PRESCRIBED HER A 5 DAY COURSE OF SOMA. I REVIEWED THE ISTOP. I REVIEWED WITH THE PATIENT HOW TO TAKE THE MEDICATION AND THE RISKS ASSOCIATED WITH THE MEDICATION, INCLUDING RESPIRATORY DEPRESSION WHICH CAN CAUSE CARDIOVASCULAR EVENTS OR EVEN . I EXPLAINED TO THE PATIENT NOT TO TAKE ALCOHOL WHILE TAKING THE MEDICATIONS. I AM LOOKING FOR LONG LASTING PAIN RELIEF WITH THIS INTERVENTION. INSTRUCTIONS WERE GIVEN. QUESTIONS WERE ANSWERED. THE PATIENT REPORTS UNDERSTANDING AND AGREES WITH THE PLAN. THERE WERE NO COMPLICATIONS DURING THE PROCEDURE. I, VANESSA LOPEZ, DOCUMENTED THE ABOVE INFORMATION ACTING A SCRIBE FOR DR. MASON. I HAVE REVIEWED THE ABOVE DOCUMENT, WRITTEN BY MICKIE SWARTZ, AND I VERIFY THAT IT IS ACCURATE PROCEDURE CODES 90346 INJ TENDON SHEATH/LIGAMENT, MODIFIERS: 50 [id number] NEEDLE LOCALIZATION BY XRAY, MODIFIERS: 26 DISPOSITION & COMMUNICATION FOLLOW UP FOLLOW UP WITH CORE DRILLER HELPER (REASON: POST SACROCOCCYGEAL ) ELECTRONICALLY SIGNED BY FRAN MASON MD, MD ON 05/25/2020 AT 12:57 PM EDT DISCLAIMER : THIS IS A VISIT SUMMARY EXTRACTED FROM THE [employer] CHART. IT IS NOT A COPY OF THE [employer] PROGRESS NOTE. MTDD
--- NOTE | 2020-05-29 08:52 | REP ---
DATE: 05/24/2020 FLUOROSCOPY GUIDED STUDY CLINICAL: Sacrococcygeal block TECHNIQUE: Intraoperative fluoroscopic imaging using portable C-arm technique. FINDINGS: Catheter and contrast overlies the sacrococcygeal region consistent with sacrococcygeal block. Total fluoroscopic time 15 seconds. IMPRESSION: Images consistent with sacrococcygeal block. [facility]
== END ==
LOC: M PAIN 09:00
PROVIDERS: ATTEND Anesthesiology
DX: M46.08 Spinal enthesopathy, sacral and sacrococcygeal region (principal); M53.3 Sacrococcygeal disorders, not elsewhere classified; I10 Essential (primary) hypertension; M46.1 Sacroiliitis, not elsewhere classified; F41.9 Anxiety disorder, unspecified; F32.9 Major depressive disorder, single episode, unspecified; M54.5 Low back pain; M62.830 Muscle spasm of back; G89.29 Other chronic pain; Z79.899 Other long term (current) drug therapy; Z79.1 Long term (current) use of non-steroidal anti-inflammatories (NSAID)
CPT/HCPCS: 20550; 77002; J3301; Q9967

== ENCOUNTER → 2020-06-07 | Outpatient (CLI) | payer MEDICARE, OTHER ==
[~2020-06-07] MED LIST changes: -BUPIVACAINE HCL 0.25% 30ML VIAL As Ordered ONE; -ISOVUE-M 300 61% 15ML VIAL As Ordered ONE; -LIDOCAINE 1% SDV 30ML VIAL As Ordered ONE; -TRIAMCINOLONE ACETONIDE SUSP 40 MG/ML VIAL (J3301) As Ordered ONE; -diazePAM 5MG TABLET As Ordered ONE
--- NOTE | 2020-06-09 01:46 | ECWPNPC ---
PATIENT NAME: DONNA CLINTON : 1950 GENDER: FEMALE VISIT DATE: 06/07/2020 DISCHARGE DATE: 06/07/20 1053 VISIT LOCKED DATE TIME: PHYSICIAN: KLAUS RAYGOZA RESOURCE: KLAUS RAYGOZA REASON FOR APPOINTMENT 1. POST SACROCOCCYGEAL HISTORY OF PRESENT ILLNESS GENERAL: 70-YEAR-OLD FEMALE IN FOR POST SACROCOCCYGEAL BLOCK FOLLOW-UP. SHE FEELS THE PROCEDURE WAS SUCCESSFUL OVERALL RATING HER PAIN PREPROCEDURE AT A 10 OUT OF 10 AND POSTPROCEDURE AT A 0 OUT OF 10. SHE FURTHER STATES THE PROCEDURE CONTINUES TO HELP HER TODAY. SHE RATES HER PAIN CURRENTLY AT A 4 OUT OF 10 AND DESCRIBES IT BURNING, SHARP, AND STABBING. FALL RISK SCREENING: SCREENING :ONE FALL WITH INJURY IN THE PAST YEAR HAD A FALL IN OCTOBER WHICH BROUGHT HER HERE. PAIN SCREENING: PATIENT HAS A COMPLAINT OF ACUTE OR CHRONIC PAIN :YES LOCATION OF PAIN:LOW BACK INTENSITY OF PAIN (SCALE OF 1 TO 10):4 WHAT DOES YOUR PAIN FEEL LIKE:BURNING, SHARP, STABBING DURATION:INTERMITTENT PAIN IS INCREASED BY:OTHERS SITTING AND WHEN SLEEPING AWAKENS HER NURSING NOTE: -. PAIN CENTER INTAKE QUESTIONS: DO YOU HAVE A HISTORY OF MRSA? :NO DO YOU TAKE A BLOOD THINNERS? :NO DO YOU HAVE ANY BLEEDING DISORDERS? :NO ANY NEW NUMBNESS OR WEAKNESS IN YOUR LEGS OR ARMS? :NO ANY PACEMAKER,DEFIBRILLATOR, OR DORSAL COLUMN STIMULATOR? :NO DO YOU HAVE ANY RASHES OR OPEN SORES? :NO ARE YOU ALLERGIC TO IV DYE? :NO ARE YOU DIABETIC? :NO ANY NEW PROBLEMS WITH YOUR MEDICATIONS? :NO HAVE YOU RECEIVED A VACCINE IN THE PAST 30 DAYS? :NO DO YOU PLAN TO RECEIVE A VACCINE IN THE NEXT 21 DAYS? :NO DO YOU NEED ANY PRESCRIPTION? :YES PT HAS EMPTY SOMA BOTTLES AND WANTS TO DISUCSSS THE BACLOFEN "ITS NOT WORKING" DO YOU TAKE ANY IMMUNOSUPPRESSIVE MEDICATIONS? :NO IS THERE A CHANCE YOU COULD BE ? :NO ARE YOU BREAST FEEDING? :NO CURRENT MEDICATIONS TAKING NAPROXEN 500 MG TABLET DELAYED RELEASE 1 TABLET ORALLY ONCE A DAY TAKING LOSARTAN POTASSIUM 50 MG TABLET 1 TABLET ORALLY ONCE A DAY TAKING CORTISONE SHOTS 3-4MONTHS, NOTES: 3 MONTHS AGO TAKING ACETAMINOPHEN 500 MG CAPSULE 2 CAPS ORALLY EVERY 6 HRS NEEDED TAKING GABAPENTIN 300 MG CAPSULE 1 CAPSULE ORALLY THREE TIMES DAILY TAKING TORSEMIDE 20 MG TABLET DIRECTED ORALLY TWICE DAILY TAKING BACLOFEN 20 MG TABLET 1 TABLET WITH FOOD OR MILK ORALLY EVERY 8 HRS NEEDED TAKING CARISOPRODOL 350 MG TABLET 1 TABLET NEEDED ORALLY FOR SPASMS AND PAIN DAILY MDD1 NOT-TAKING LORAZEPAM 0.5 MG TABLET 1 TAB ORALLY ONCE DAILY NOT-TAKING TRIAMTERENE-HCTZ 37.5-25 MG TABLET 1 TABLET IN THE MORNING ORALLY ONCE A DAY NOT-TAKING TIZANIDINE HCL 2 MG TABLET 1 TABLET NEEDED ORALLY THREE TIMES A DAY NOT-TAKING FUROSEMIDE 20 MG TABLET 1 TABLET ORALLY ONCE A DAY, NOTES: UNSURE OF USAGE MEDICATION LIST REVIEWED AND RECONCILED WITH THE PATIENT PAST MEDICAL HISTORY HYPERTENSION ANXIETY DEPRESSION LOW BACK PAIN/SACROILIITIS UTI ALLERGIES N.K.D.A. SURGICAL HISTORY D&C 1974 FAMILY HISTORY FATHER: MOTHER: SON(S): ALIVE DAUGHTER(S): ALIVE 2 SON(S) , 2 DAUGHTER(S) - HEALTHY. SOCIAL HISTORY GENERAL: TOBACCO USE ARE YOU A:NONSMOKER LATEX QUESTIONNAIRE LATEX ALLERGY : HAVE YOU EVER DEVELOPED ANY TYPE OF REACTION AFTER HANDLING LATEX PRODUCTS SUCH RUBBER GLOVES, CONDOMS, DIAPHRAGMS, BALLOONS, SOCKS, OR UNDERWEAR?NO LATEX ALLERGY : HAVE YOU EVER DEVELOPED ANY TYPE OF REACTION DURING OR AFTER DENTAL APPOINTMENT, VAGINAL/RECTAL EXAMINATION, SURGICAL PROCEDURE, OR ANY OTHER EXPOSURE?NO DATE ASKED : 02/29/2020 LATEX RISK : HAVE YOU EVER HAD ANY DIFFICULTY BREATHING OR HIVES AFTER EATING OR HANDLING ANY FRUITS, OR VEGETABLES; SUCH KIWI, BANANAS, STONE FRUITS, OR CHESTNUTSNO LATEX RISK : DO YOU HAVE A PREVIOUS PERSONAL HISTORY OF MORE THAN NINE SURGERIES, SPINA BIFIDA, OR REPEATED CATHERIZATIONS? NO LATEX RISK : ARE YOU FREQUENTLY EXPOSED TO LATEX PRODUCTS IN YOUR OCCUPATION?NO ALCOHOL SCREENING DID YOU HAVE A DRINK CONTAINING ALCOHOL IN THE PAST YEAR?NO POINTS0 INTERPRETATIONNEGATIVE RECREATIONAL DRUG USE DRUG USE?NO CAFFEINE CAFFEINE USE?YES HOW OFTEN AND HOW MUCH? OCCASIONALLY LANGUAGE LANGUAGES SPOKEN:GUAMANIAN LEARNING BARRIERS / SPECIAL NEEDS CHANGE FROM LAST VISIT?NO BARRIERS TO LEARNING?NO HEARING IMPAIRED?NO VISION IMPAIRED?YES COGNITIVELY IMPAIRED?NO :CORRECTIVE LENSES READINESS TO LEARN?YES LEARNING PREFERENCES?NO LEARNING CAPABILITIES PRESENT?YES EMOTIONAL BARRIERS?NO SPECIAL DEVICES?YES :WALKER GOVERNMENT GAUGER NEEDED?NO DOMESTIC VIOLENCE DO YOU FEEL SAFE IN YOUR ENVIRONMENT?YES MARITAL STATUS: . PAIN CLINIC PFS, CLERGY, PUBLIC HEALTH REFERRALS PFS REFERRAL NEEDED?NO CLERGY REFERRAL NEEDED?NO PUBLIC HEALTH REFERRAL NEEDED?NO HAS THE PATIENT BEEN EDUCATED REGARDING HIS/HER PLAN OF CARE?YES HAS THE PATIENT BEEN EDUCATED REGARDING PAIN, THE RISK FOR PAIN, THE IMPORTANCE OF EFFECTIVE PAIN MANAGEMENT, AND THE PAIN ASSESSMENT PROCESS?YES ADVANCE DIRECTIVE ADVANCE DIRECTIVE DISCUSSED WITH PATIENT:YES 05/24/20 STATES SHE HAS HCP-, SERENA [phone] AND LIVING WILL SHE WILL BRING THESE IN WITH HER HOSPITALIZATION/MAJOR DIAGNOSTIC PROCEDURE CHILDBIRTH D&C REVIEW OF SYSTEMS CONSTITUTIONAL: ANY RECENT FEVER NO . CHILLS NO . WEIGHT CHANGE OF UNKNOWN REASONS NO . GASTROENTEROLOGY: NEW UNEXPLAINABLE CHANGES IN BOWEL CONTROL NO . CONSTIPATION NO . GENITOURINARY: ANY NEW CHANGE IN BLADDER CONTROL? NO . NEUROLOGY: NEW ONSET DIZZINESS OR NEUROLOGICAL CHANGES NOT MENTIONED NO . NEW NUMBNESS OR PAIN PATTERNS NOT MENTIONED AND PERTINENT TO TODAY'S VISIT NO . CARDIOLOGY: NEW CHEST PRESSURE NO . NEW CHEST PAIN NO . RESPIRATORY: UNEXPLAINABLE COUGH NO . NEW SHORTNESS OF BREATH NO . VITAL SIGNS WT 265.9 LBS, HT 50 IN, BMI 74.77 INDEX, BP 146/79 MM HG, HR 72 /MIN, RR 18 /MIN, TEMP 98.0 F, OXYGEN SAT % 96%, SAFE IN ENV? (Y/N) YES, NA INITIALS ME 09:53, REVIEWED BY: COTY. EXAMINATION GENERAL EXAMINATION: GENERALNO ACUTE DISTRESS, WELL NOURISHED AND HYDRATED. PSYCHAPPROPRIATE MOOD AND AFFECT . LUNGS:CLEAR TO AUSCULTATION BILATERALLY, NO WHEEZES, RHONCHI, RALES. HEART:NO MURMURS, REGULAR RATE AND RHYTHM. ASSESSMENTS OTHER CHRONIC PAIN - G89.29 (PRIMARY) SACROILIITIS, NOT ELSEWHERE CLASSIFIED - M46.1 TREATMENT OTHER CHRONIC PAIN START NORCO TABLET, 7.5-325 MG, 1 TABLET NEEDED, ORALLY, DAILY NEEDED, 30 DAYS, 30 START TIZANIDINE HCL TABLET, 2 MG, 1 TABLET NEEDED, ORALLY, THREE TIMES A DAY, 30 DAYS, 90 PAIN PROCEDURE LOGDATE OF [id number]/14/20PROCEDURE:BILAT SACROCOCCYGEAL BLOCKAMOUNT OF PRE SEDATEVALIUM 10MGRESULT:PRE-05/20 POST 0-08/20 NOTES: 70-YEAR-OLD FEMALE IN FOR POST SACROCOCCYGEAL BLOCK FOLLOW-UP. GIVEN PRESENTING SYMPTOMS RECOMMEND STARTING NORCO 7.5/325 MG DAILY NEEDED FOR PAIN. FURTHER RECOMMENDED STARTING TIZANIDINE 2 MG 3 TIMES A DAY NEEDED FOR MUSCLE SPASMS. WE'LL FOLLOW-UP IN ONE MONTH TO DETERMINE EFFICACY OF TREATMENT. PATIENT HAS EXPRESSED UNDERSTANDING OF AND WAS IN AGREEMENT WITH TREATMENT PLAN. GIVEN TIME TO ASK QUESTIONS AND EXPRESS CONCERNS. , ISTOP REGISTRY REVIEWED AND DEMONSTRATES COMPLLIANCE. (REF # [id number] ). PROCEDURE CODES FA211 ESTABILISHED PATIENT [facility] CHARGE DISPOSITION & COMMUNICATION FOLLOW UP 4 WEEKS (REASON: NEW MEDICATION) ELECTRONICALLY SIGNED BY KARY NGUYEN ON 06/08/2020 AT 08:38 AM EDT DISCLAIMER : THIS IS A VISIT SUMMARY EXTRACTED FROM THE [employer] CHART. IT IS NOT A COPY OF THE [employer] PROGRESS NOTE. WALKER
== END ==
LOC: M PAIN 09:45
PROVIDERS: ATTEND Family Medicine
DX: G89.29 Other chronic pain (principal); M46.1 Sacroiliitis, not elsewhere classified; I10 Essential (primary) hypertension; F41.9 Anxiety disorder, unspecified; F32.9 Major depressive disorder, single episode, unspecified; Z79.1 Long term (current) use of non-steroidal anti-inflammatories (NSAID); Z79.899 Other long term (current) drug therapy

== ENCOUNTER → 2020-08-07 | Outpatient (CLI) | payer OTHER ==
--- NOTE | 2020-08-09 01:22 | ECWPNPC ---
PATIENT NAME: DONNA CLINTON : 1950 GENDER: FEMALE VISIT DATE: 08/07/2020 DISCHARGE DATE: 08/07/20935 VISIT LOCKED DATE TIME: PHYSICIAN: KLAUS RAYGOZA RESOURCE: KLAUS RAYGOZA REASON FOR APPOINTMENT 1. NEW MEDICATION HISTORY OF PRESENT ILLNESS GENERAL: - 70-YEAR-OLD FEMALE IN FOR CHRONIC PAIN FOLLOW-UP. SHE RATES HER PAIN CURRENTLY AT A 4 OUT OF 10 AND DESCRIBES IT ACHING, AND INTERMITTENT. AT LAST CLINIC VISIT PATIENT WAS STARTED ON NORCO 7.54/325 MG AND SHE ADMITS TODAY THAT THIS HAS BEEN BENEFICIAL. SHE DOES ADMIT TO CONTINUED SPASMS IN HER LOW BACK. FALL RISK SCREENING: SCREENING :ONE FALL WITH INJURY IN THE PAST YEAR OCTOBER 2019 PAIN SCREENING: PATIENT HAS A COMPLAINT OF ACUTE OR CHRONIC PAIN :YES LOCATION OF PAIN:LOW BACK STATES HER PAIN AT INJECTION SITE IS DOING WELL, STATES SHE HAS NO ISSUES. STATES THAT HER "PAIN FROM HER UNDERWEAR LINE TO HER BUT CHEEKS IS WORSE" INTENSITY OF PAIN (SCALE OF 1 TO 10):4 WHAT DOES YOUR PAIN FEEL LIKE:ACHING, INTERMITTENT DURATION:PERIODIC STATES IT IS WORSE WHEN SHE RIDES IN THE CAR PAIN IS INCREASED BY:PROLONGED STANDING, OTHERS RIDING IN THE CAR PAIN IS DECREASED BY:USE OF PAIN MEDICATIONS, SITTING NURSING NOTE: -. PAIN CENTER INTAKE QUESTIONS: DO YOU HAVE A HISTORY OF MRSA? :NO DO YOU TAKE A BLOOD THINNERS? :NO DO YOU HAVE ANY BLEEDING DISORDERS? :NO ANY NEW NUMBNESS OR WEAKNESS IN YOUR LEGS OR ARMS? :YES STATES HER LEFT KNEE BELL SOMETIMES WHERE SHE HAD CORTISONE SHOT ANY PACEMAKER,DEFIBRILLATOR, OR DORSAL COLUMN STIMULATOR? :NO DO YOU HAVE ANY RASHES OR OPEN SORES? :NO ARE YOU ALLERGIC TO IV DYE? :NO ARE YOU DIABETIC? :NO ANY NEW PROBLEMS WITH YOUR MEDICATIONS? :NO HAVE YOU RECEIVED A VACCINE IN THE PAST 30 DAYS? :YES IF SO WHAT VACCINE AND WHEN? FLU SHOT 07/05/2020 DO YOU PLAN TO RECEIVE A VACCINE IN THE NEXT 21 DAYS? :NO DO YOU NEED ANY PRESCRIPTION? :NO DO YOU TAKE ANY IMMUNOSUPPRESSIVE MEDICATIONS? :NO ANY HISTORY OF SEIZURES? :NO ANY HISTORY OF CARDIAC ISSUES OR EVENTS? :NO DO YOU HAVE SLEEP APNEA? :NO ANY RECENT HEAD INJURY? :NO DO YOU HAVE ANY NEW INFECTIONS? :NO IS THERE A CHANCE YOU COULD BE ? :NO ARE YOU BREAST FEEDING? :NO CURRENT MEDICATIONS TAKING LOSARTAN POTASSIUM 50 MG TABLET 1 TABLET ORALLY ONCE A DAY TAKING CORTISONE SHOTS 3-4MONTHS, NOTES: 3 MONTHS AGO TAKING ACETAMINOPHEN 500 MG CAPSULE 2 CAPS ORALLY EVERY 6 HRS NEEDED TAKING TORSEMIDE 20 MG TABLET DIRECTED ORALLY TWICE DAILY TAKING BACLOFEN 20 MG TABLET 1 TABLET WITH FOOD OR MILK ORALLY EVERY 8 HRS NEEDED TAKING CARISOPRODOL 350 MG TABLET 1 TABLET NEEDED ORALLY FOR SPASMS AND PAIN DAILY MDD1 TAKING NORCO 7.5-325 MG TABLET 1 TABLET NEEDED ORALLY DAILY NEEDED TAKING TIZANIDINE HCL 2 MG TABLET 1 TABLET NEEDED ORALLY THREE TIMES A DAY TAKING GABAPENTIN 300 MG CAPSULE 1 CAPSULE ORALLY THREE TIMES DAILY TAKING MELOXICAM 15 MG TABLET 1 TABLET ORALLY ONCE A DAY TAKING ATORVASTATIN CALCIUM 10 MG TABLET 1 TABLET ORALLY BEFORE BEDTIME TAKING FISH OIL 1000 MG CAPSULE 1 CAPSULE ORALLY ONCE A DAY NOT-TAKING NAPROXEN 500 MG TABLET DELAYED RELEASE 1 TABLET ORALLY ONCE A DAY NOT-TAKING LORAZEPAM 0.5 MG TABLET 1 TAB ORALLY ONCE DAILY NOT-TAKING TRIAMTERENE-HCTZ 37.5-25 MG TABLET 1 TABLET IN THE MORNING ORALLY ONCE A DAY NOT-TAKING TIZANIDINE HCL 2 MG TABLET 1 TABLET NEEDED ORALLY THREE TIMES A DAY NOT-TAKING FUROSEMIDE 20 MG TABLET 1 TABLET ORALLY ONCE A DAY, NOTES: UNSURE OF USAGE MEDICATION LIST REVIEWED AND RECONCILED WITH THE PATIENT PAST MEDICAL HISTORY HYPERTENSION ANXIETY DEPRESSION LOW BACK PAIN/SACROILIITIS UTI HIGH CHOLESTEROL ALLERGIES N.K.D.A. SURGICAL HISTORY D&C 1973 FAMILY HISTORY FATHER: MOTHER: SON(S): ALIVE DAUGHTER(S): ALIVE 2 SON(S) , 2 DAUGHTER(S) - HEALTHY. SOCIAL HISTORY GENERAL: TOBACCO USE ARE YOU A:NONSMOKER LATEX QUESTIONNAIRE LATEX ALLERGY : HAVE YOU EVER DEVELOPED ANY TYPE OF REACTION AFTER HANDLING LATEX PRODUCTS SUCH RUBBER GLOVES, CONDOMS, DIAPHRAGMS, BALLOONS, SOCKS, OR UNDERWEAR?NO LATEX ALLERGY : HAVE YOU EVER DEVELOPED ANY TYPE OF REACTION DURING OR AFTER DENTAL APPOINTMENT, VAGINAL/RECTAL EXAMINATION, SURGICAL PROCEDURE, OR ANY OTHER EXPOSURE?NO LATEX RISK : HAVE YOU EVER HAD ANY DIFFICULTY BREATHING OR HIVES AFTER EATING OR HANDLING ANY FRUITS, OR VEGETABLES; SUCH KIWI, BANANAS, STONE FRUITS, OR CHESTNUTSNO LATEX RISK : DO YOU HAVE A PREVIOUS PERSONAL HISTORY OF MORE THAN NINE SURGERIES, SPINA BIFIDA, OR REPEATED CATHERIZATIONS? NO LATEX RISK : ARE YOU FREQUENTLY EXPOSED TO LATEX PRODUCTS IN YOUR OCCUPATION?NO DATE ASKED : 08/07/2020 ALCOHOL SCREENING DID YOU HAVE A DRINK CONTAINING ALCOHOL IN THE PAST YEAR?NO POINTS0 INTERPRETATIONNEGATIVE RECREATIONAL DRUG USE DRUG USE?NO CAFFEINE CAFFEINE USE?YES HOW OFTEN AND HOW MUCH? OCCASIONALLY LANGUAGE LANGUAGES SPOKEN:TURKMEN LEARNING BARRIERS / SPECIAL NEEDS CHANGE FROM LAST VISIT?NO BARRIERS TO LEARNING?NO HEARING IMPAIRED?NO VISION IMPAIRED?YES COGNITIVELY IMPAIRED?NO :CORRECTIVE LENSES READINESS TO LEARN?YES LEARNING PREFERENCES?NO LEARNING CAPABILITIES PRESENT?YES EMOTIONAL BARRIERS?NO SPECIAL DEVICES?YES :WALKER HOPPER FEEDER NEEDED?NO DOMESTIC VIOLENCE DO YOU FEEL SAFE IN YOUR ENVIRONMENT?YES MARITAL STATUS: . PAIN CLINIC PFS, CLERGY, PUBLIC HEALTH REFERRALS PFS REFERRAL NEEDED?NO CLERGY REFERRAL NEEDED?NO PUBLIC HEALTH REFERRAL NEEDED?NO HAS THE PATIENT BEEN EDUCATED REGARDING HIS/HER PLAN OF CARE?YES HAS THE PATIENT BEEN EDUCATED REGARDING PAIN, THE RISK FOR PAIN, THE IMPORTANCE OF EFFECTIVE PAIN MANAGEMENT, AND THE PAIN ASSESSMENT PROCESS?YES ADVANCE DIRECTIVE ADVANCE DIRECTIVE DISCUSSED WITH PATIENT:YES 05/24/20 STATES SHE HAS HCP-, SERENA [phone] AND LIVING WILL SHE WILL BRING THESE IN WITH HER HOSPITALIZATION/MAJOR DIAGNOSTIC PROCEDURE CHILDBIRTH D&C REVIEW OF SYSTEMS CONSTITUTIONAL: ANY RECENT FEVER NO . CHILLS NO . WEIGHT CHANGE OF UNKNOWN REASONS NO . GASTROENTEROLOGY: NEW UNEXPLAINABLE CHANGES IN BOWEL CONTROL NO . CONSTIPATION NO . GENITOURINARY: ANY NEW CHANGE IN BLADDER CONTROL? NO . NEUROLOGY: NEW ONSET DIZZINESS OR NEUROLOGICAL CHANGES NOT MENTIONED NO . NEW NUMBNESS OR PAIN PATTERNS NOT MENTIONED AND PERTINENT TO TODAY'S VISIT NO . CARDIOLOGY: NEW CHEST PRESSURE NO . NEW CHEST PAIN NO . RESPIRATORY: UNEXPLAINABLE COUGH NO . NEW SHORTNESS OF BREATH NO . VITAL SIGNS WT 266.0 LBS, HT 50 IN, BMI 74.80 INDEX, BP 125/68 MM HG, HR 73 /MIN, RR 18 /MIN, TEMP 98.3 F, OXYGEN SAT % 97%, SAFE IN ENV? (Y/N) YES, REVIEWED BY: SANG. EXAMINATION GENERAL EXAMINATION: GENERALNO ACUTE DISTRESS, WELL NOURISHED AND HYDRATED. PSYCHAPPROPRIATE MOOD AND AFFECT . LUNGS:CLEAR TO AUSCULTATION BILATERALLY, NO WHEEZES, RHONCHI, RALES. HEART:NO MURMURS, REGULAR RATE AND RHYTHM. ASSESSMENTS SACROILIITIS, NOT ELSEWHERE CLASSIFIED - M46.1 (PRIMARY) TREATMENT OTHERS REFILL TIZANIDINE HCL TABLET, 4 MG, 1 TABLET NEEDED, ORALLY, THREE TIMES A DAY, 90 DAY(S), 270 TABLET(S) REFILL GABAPENTIN CAPSULE, 300 MG, 1 CAPSULE, ORALLY, THREE TIMES DAILY, 90 DAYS, 270 NOTES: 70-YEAR-OLD FEMALE IN FOR CHRONIC PAIN FOLLOW-UP. GIVEN PRESENTING SYMPTOMS RECOMMENDED INCREASING TIZANIDINE TO 4 MG 3 TIMES A DAY WITH FOLLOW-UP IN 3 MONTHS. PATIENT HAS EXPRESSED UNDERSTANDING OF AND WAS IN AGREEMENT WITH TREATMENT PLAN. GIVEN TIME TO ASK QUESTIONS AND EXPRESS CONCERNS. , ISTOP REGISTRY REVIEWED AND DEMONSTRATES COMPLLIANCE. (REF # [id number] ) BRINGS IN MEDICATIONS WHICH IS APPROPRIATE FOR WHAT WAS DISPENSED. RECENT URINE TOXICOLOGY REVIEWED. NO UNAUTHORIZED MEDICATIONS. NO ILLICIT SUBSTANCES AND PRESCRIBED MEDICATIONS WERE PRESENT. PROCEDURE CODES FA211 ESTABILISHED PATIENT [facility] CHARGE DISPOSITION & COMMUNICATION FOLLOW UP 3 MONTHS (REASON: SACROILIITIS) ELECTRONICALLY SIGNED BY KARY NGUYEN ON 08/08/2020 AT 08:52 AM EST DISCLAIMER : THIS IS A VISIT SUMMARY EXTRACTED FROM THE [employer] CHART. IT IS NOT A COPY OF THE [employer] PROGRESS NOTE. WALKER
== END ==
LOC: M PAIN 09:00
PROVIDERS: ATTEND Family Medicine
DX: M46.1 Sacroiliitis, not elsewhere classified (principal); G89.29 Other chronic pain; Z86.59 Personal history of other mental and behavioral disorders; E66.01 Morbid (severe) obesity due to excess calories; Z68.45 Body mass index [BMI] 70 or greater, adult; Z79.899 Other long term (current) drug therapy

== ENCOUNTER → 2020-11-17 | Outpatient (CLI) | payer MEDICARE ==
--- NOTE | 2020-11-21 04:49 | ECWPNPC ---
PATIENT NAME: DONNA CLINTON : 1950 GENDER: FEMALE VISIT DATE: 11/17/2020 DISCHARGE DATE: 11/17/20 1110 VISIT LOCKED DATE TIME: PHYSICIAN: KLAUS RAYGOZA RESOURCE: KLAUS RAYGOZA REASON FOR APPOINTMENT 1. SACROILIITIS HISTORY OF PRESENT ILLNESS DEPRESSION SCREENIN-YEAR-OLD FEMALE IN FOR CHRONIC PAIN FOLLOW-UP. SHE RATES HER PAIN CURRENTLY AT A 5 OUT OF 10 AND DESCRIBES IT THROBBING. SHE FEELS MEDICATIONS ARE HELPFUL AND DENIES MED SIDE EFFECTS AT THIS TIME. PHQ-2 (2015 EDITION) LITTLE INTEREST OR PLEASURE IN DOING THINGS?NOT AT ALL FEELING DOWN, DEPRESSED, OR HOPELESS?NOT AT ALL TOTAL SCORE0 GENERAL: -. FALL RISK SCREENING: SCREENING : NO FALLS REPORTED IN THE LAST YEAR. PAIN SCREENING: PATIENT HAS A COMPLAINT OF ACUTE OR CHRONIC PAIN :YES LOCATION OF PAIN:LOW BACK INTENSITY OF PAIN (SCALE OF 1 TO 10):5 WHAT DOES YOUR PAIN FEEL LIKE:THROBBING DURATION:INTERMITTENT PAIN IS INCREASED BY: SITTING PAIN IS DECREASED BY:USE OF PAIN MEDICATIONS NURSING NOTE: -. PAIN CENTER INTAKE QUESTIONS: DO YOU HAVE A HISTORY OF MRSA? :NO DO YOU TAKE A BLOOD THINNERS? :NO DO YOU HAVE ANY BLEEDING DISORDERS? :NO ANY NEW NUMBNESS OR WEAKNESS IN YOUR LEGS OR ARMS? :NO ANY PACEMAKER,DEFIBRILLATOR, OR DORSAL COLUMN STIMULATOR? :NO DO YOU HAVE ANY RASHES OR OPEN SORES? :NO ARE YOU ALLERGIC TO IV DYE? :NO ARE YOU DIABETIC? :NO ANY NEW PROBLEMS WITH YOUR MEDICATIONS? :NO HAVE YOU RECEIVED A VACCINE IN THE PAST 30 DAYS? :NO DO YOU PLAN TO RECEIVE A VACCINE IN THE NEXT 21 DAYS? :NO DO YOU NEED ANY PRESCRIPTION? :YES HYDROCODONE, SHYANNE, TIZANIDINE DO YOU TAKE ANY IMMUNOSUPPRESSIVE MEDICATIONS? :NO DO YOU HAVE ANY KIDNEY OR LIVER DISEASE? :NO IS THERE A CHANCE YOU COULD BE ? :NO ARE YOU BREAST FEEDING? :NO CURRENT MEDICATIONS TAKING LOSARTAN POTASSIUM 50 MG TABLET 1 TABLET ORALLY ONCE A DAY TAKING CORTISONE SHOTS 3-4MONTHS, NOTES: 3 MONTHS AGO NEEDED TAKING ACETAMINOPHEN 500 MG CAPSULE 2 CAPS ORALLY EVERY 6 HRS NEEDED TAKING TORSEMIDE 20 MG TABLET DIRECTED ORALLY TWICE DAILY TAKING NORCO 7.5-325 MG TABLET 1 TABLET NEEDED ORALLY DAILY NEEDED TAKING MELOXICAM 15 MG TABLET 1 TABLET ORALLY ONCE A DAY TAKING ATORVASTATIN CALCIUM 10 MG TABLET 1 TABLET ORALLY BEFORE BEDTIME TAKING FISH OIL 1000 MG CAPSULE 1 CAPSULE ORALLY ONCE A DAY TAKING TIZANIDINE HCL 4 MG TABLET 1 TABLET NEEDED ORALLY THREE TIMES A DAY TAKING GABAPENTIN 300 MG CAPSULE 1 CAPSULE ORALLY THREE TIMES DAILY NOT-TAKING CARISOPRODOL 350 MG TABLET 1 TABLET NEEDED ORALLY FOR SPASMS AND PAIN DAILY MDD1 NOT-TAKING BACLOFEN 20 MG TABLET 1 TABLET WITH FOOD OR MILK ORALLY EVERY 8 HRS NEEDED NOT-TAKING NAPROXEN 500 MG TABLET DELAYED RELEASE 1 TABLET ORALLY ONCE A DAY NOT-TAKING LORAZEPAM 0.5 MG TABLET 1 TAB ORALLY ONCE DAILY NOT-TAKING TRIAMTERENE-HCTZ 37.5-25 MG TABLET 1 TABLET IN THE MORNING ORALLY ONCE A DAY NOT-TAKING TIZANIDINE HCL 2 MG TABLET 1 TABLET NEEDED ORALLY THREE TIMES A DAY NOT-TAKING FUROSEMIDE 20 MG TABLET 1 TABLET ORALLY ONCE A DAY, NOTES: UNSURE OF USAGE MEDICATION LIST REVIEWED AND RECONCILED WITH THE PATIENT PAST MEDICAL HISTORY HYPERTENSION ANXIETY DEPRESSION LOW BACK PAIN/SACROILIITIS UTI HIGH CHOLESTEROL ALLERGIES N.K.D.A. SOCIAL HISTORY GENERAL: TOBACCO USE ARE YOU A:NONSMOKER LATEX QUESTIONNAIRE LATEX ALLERGY : HAVE YOU EVER DEVELOPED ANY TYPE OF REACTION AFTER HANDLING LATEX PRODUCTS SUCH RUBBER GLOVES, CONDOMS, DIAPHRAGMS, BALLOONS, SOCKS, OR UNDERWEAR?NO LATEX ALLERGY : HAVE YOU EVER DEVELOPED ANY TYPE OF REACTION DURING OR AFTER DENTAL APPOINTMENT, VAGINAL/RECTAL EXAMINATION, SURGICAL PROCEDURE, OR ANY OTHER EXPOSURE?NO DATE ASKED : 08/07/2020 LATEX RISK : HAVE YOU EVER HAD ANY DIFFICULTY BREATHING OR HIVES AFTER EATING OR HANDLING ANY FRUITS, OR VEGETABLES; SUCH KIWI, BANANAS, STONE FRUITS, OR CHESTNUTSNO LATEX RISK : DO YOU HAVE A PREVIOUS PERSONAL HISTORY OF MORE THAN NINE SURGERIES, SPINA BIFIDA, OR REPEATED CATHERIZATIONS? NO LATEX RISK : ARE YOU FREQUENTLY EXPOSED TO LATEX PRODUCTS IN YOUR OCCUPATION?NO ALCOHOL SCREENING DID YOU HAVE A DRINK CONTAINING ALCOHOL IN THE PAST YEAR?NO POINTS0 INTERPRETATIONNEGATIVE RECREATIONAL DRUG USE DRUG USE?NO CAFFEINE CAFFEINE USE?YES HOW OFTEN AND HOW MUCH? OCCASIONALLY LANGUAGE LANGUAGES SPOKEN:YI LEARNING BARRIERS / SPECIAL NEEDS CHANGE FROM LAST VISIT?NO 10/13/20, 11/17/20 BARRIERS TO LEARNING?NO HEARING IMPAIRED?NO VISION IMPAIRED?YES COGNITIVELY IMPAIRED?NO :CORRECTIVE LENSES READINESS TO LEARN?YES LEARNING PREFERENCES?NO LEARNING CAPABILITIES PRESENT?YES EMOTIONAL BARRIERS?NO SPECIAL DEVICES?YES :WALKER DIRECTOR AUDIENCE MARKETING NEEDED?NO DOMESTIC VIOLENCE DO YOU FEEL SAFE IN YOUR ENVIRONMENT?YES MARITAL STATUS: . - PFS REFERRAL NEEDED?NO CLERGY REFERRAL NEEDED?NO PUBLIC HEALTH REFERRAL NEEDED?NO HAS THE PATIENT BEEN EDUCATED REGARDING HIS/HER PLAN OF CARE?YES HAS THE PATIENT BEEN EDUCATED REGARDING PAIN, THE RISK FOR PAIN, THE IMPORTANCE OF EFFECTIVE PAIN MANAGEMENT, AND THE PAIN ASSESSMENT PROCESS?YES ADVANCE DIRECTIVE ADVANCE DIRECTIVE DISCUSSED WITH PATIENT:YES 05/24/20 STATES SHE HAS HCP-, SERENA [phone] AND LIVING WILL SHE WILL BRING THESE IN WITH HER REVIEW OF SYSTEMS CONSTITUTIONAL: ANY RECENT FEVER NO . CHILLS NO . WEIGHT CHANGE OF UNKNOWN REASONS NO . GASTROENTEROLOGY: NEW UNEXPLAINABLE CHANGES IN BOWEL CONTROL NO . CONSTIPATION NO . GENITOURINARY: ANY NEW CHANGE IN BLADDER CONTROL? NO . NEUROLOGY: NEW ONSET DIZZINESS OR NEUROLOGICAL CHANGES NOT MENTIONED NO . NEW NUMBNESS OR PAIN PATTERNS NOT MENTIONED AND PERTINENT TO TODAY'S VISIT NO . CARDIOLOGY: NEW CHEST PRESSURE NO . PATIENT DENIES NO . RESPIRATORY: UNEXPLAINABLE COUGH NO . NEW SHORTNESS OF BREATH NO . VITAL SIGNS WT 276.4 LBS, HT 50 IN, BMI 77.72 INDEX, BP 148/69 MM HG, HR 73 /MIN, RR 18 /MIN, TEMP 97.6 F, OXYGEN SAT % 96%, SAFE IN ENV? (Y/N) Y, NA INITIALS TX 10:36, REVIEWED BY: EM. EXAMINATION GENERAL EXAMINATION: GENERALNO ACUTE DISTRESS, WELL NOURISHED AND HYDRATED. PSYCHAPPROPRIATE MOOD AND AFFECT . LUNGS:CLEAR TO AUSCULTATION BILATERALLY, NO WHEEZES, RHONCHI, RALES. HEART:NO MURMURS, REGULAR RATE AND RHYTHM. ASSESSMENTS SACROILIITIS, NOT ELSEWHERE CLASSIFIED - M46.1 (PRIMARY), RISK: (NULL) TREATMENT SACROILIITIS, NOT ELSEWHERE CLASSIFIED STOP NORCO TABLET, 7.5-325 MG, 1 TABLET NEEDED, ORALLY, DAILY NEEDED, 30 DAYS, 30 START HYDROCODONE-ACETAMINOPHEN TABLET, 7.5-325 MG, 1 TABLET NEEDED, ORALLY, DAILY PRN, 30 DAY(S), 30 REFILL TIZANIDINE HCL TABLET, 4 MG, 1 TABLET NEEDED, ORALLY, THREE TIMES A DAY, 90 DAY(S), 270 TABLET(S), REFILLS 1 CONTINUE GABAPENTIN CAPSULE, 300 MG, 1 CAPSULE, ORALLY, THREE TIMES DAILY, 90 DAYS, 270, REFILLS 1 NOTES: 70-YEAR-OLD FEMALE IN FOR CHRONIC PAIN FOLLOW-UP. GIVEN PRESENTING SYMPTOMS RECOMMENDED CONTINUATION OF CURRENT MEDICATION REGIMEN WITH FOLLOW-UP IN 4 MONTHS. PATIENT HAS EXPRESSED UNDERSTANDING OF AND WAS IN AGREEMENT WITH TREATMENT PLAN. GIVEN TIME TO ASK QUESTIONS AND EXPRESS CONCERNS. , ISTOP REGISTRY REVIEWED AND DEMONSTRATES COMPLLIANCE. (REF # [id number] ) BRINGS IN MEDICATIONS WHICH IS APPROPRIATE FOR WHAT WAS DISPENSED. RECENT URINE TOXICOLOGY REVIEWED. NO UNAUTHORIZED MEDICATIONS. NO ILLICIT SUBSTANCES AND PRESCRIBED MEDICATIONS WERE PRESENT. PROCEDURE CODES [id number] ESTABILISHED PATIENT [facility] CHARGE DISPOSITION & COMMUNICATION FOLLOW UP 4 MONTHS (REASON: SACROILLITIS ) ELECTRONICALLY SIGNED BY KARY NGUYEN ON 11/20/2020 AT 01:19 PM EDT DISCLAIMER : THIS IS A VISIT SUMMARY EXTRACTED FROM THE [employer] CHART. IT IS NOT A COPY OF THE [employer] PROGRESS NOTE. [facility]
== END ==
LOC: M PAIN 11:30
PROVIDERS: ATTEND Family Medicine
DX: M46.1 Sacroiliitis, not elsewhere classified (principal); I10 Essential (primary) hypertension; F41.9 Anxiety disorder, unspecified; F32.9 Major depressive disorder, single episode, unspecified; E78.00 Pure hypercholesterolemia, unspecified; Z79.891 Long term (current) use of opiate analgesic; Z79.899 Other long term (current) drug therapy

== ENCOUNTER → 2020-11-17 | Outpatient (REF) | payer MEDICARE | LOC: M LAB REF 14:06 | PROVIDERS: ATTEND Physician Assistant | DX: L57.0 Actinic keratosis (principal); M46.1 Sacroiliitis, not elsewhere classified; I10 Essential (primary) hypertension; F41.9 Anxiety disorder, unspecified; F32.9 Major depressive disorder, single episode, unspecified; E78.00 Pure hypercholesterolemia, unspecified; Z79.891 Long term (current) use of opiate analgesic; Z79.899 Other long term (current) drug therapy | CPT/HCPCS: 11102; 88305; G0463 ==

== ENCOUNTER → 2021-04-27 | Outpatient (CLI) | payer MEDICARE | LOC: M PAIN 11:00 | PROVIDERS: ATTEND Anesthesiology | DX: M53.3 Sacrococcygeal disorders, not elsewhere classified (principal); M46.1 Sacroiliitis, not elsewhere classified; I10 Essential (primary) hypertension; F41.9 Anxiety disorder, unspecified; F32.9 Major depressive disorder, single episode, unspecified; E78.00 Pure hypercholesterolemia, unspecified; Z79.1 Long term (current) use of non-steroidal anti-inflammatories (NSAID); Z79.899 Other long term (current) drug therapy ==

== ENCOUNTER → 2023-10-01 | Outpatient (CLI) | payer MEDICARE ==
[~2023-10-01] MED LIST changes: +ACYC1TAB PO; +AMLO1TAB24 PO; +ATOR1TAB19 PO; +FAMO1TAB11 PO; +GABA-282 PO; +POTA-151 PO; +TORS20TA2 PO
== END ==
LOC: M ONCR 08:34
PROVIDERS: ATTEND General Practice
DX: C85.19 Unspecified B-cell lymphoma, extranodal and solid organ sites (principal); Z79.899 Other long term (current) drug therapy; Z80.0 Family history of malignant neoplasm of digestive organs; Z91.81 History of falling

== ENCOUNTER 2023-11-07 09:06 | Outpatient (RCR) | payer MEDICARE ==
[~2023-11-07 09:06] MED LIST changes: +MEMA10TA19 PO; +MEMA1TAB3 PO
== END 2023-11-09 ==
LOC: M ONCR 09:06
PROVIDERS: ATTEND General Practice
DX: Z51.0 Encounter for antineoplastic radiation therapy (principal); C85.19 Unspecified B-cell lymphoma, extranodal and solid organ sites

== ENCOUNTER 2023-11-13 09:08 | Outpatient (RCR) | payer MEDICARE ==
[~2023-11-13 09:08] MED LIST changes: +MEMA10TA PO; -MEMA10TA19 PO
== END 2023-12-09 ==
LOC: M ONCR 09:08
PROVIDERS: ATTEND General Practice
DX: Z51.0 Encounter for antineoplastic radiation therapy (principal); C85.19 Unspecified B-cell lymphoma, extranodal and solid organ sites

== ENCOUNTER → 2024-02-19 | Outpatient (CLI) | payer MEDICARE ==
[~2024-02-19] MED LIST changes: +BUPR1TAB52 PO; +CYAN-1 PO; +DONE-1 PO; +ECOT81TA5 PO
== END ==
LOC: M ONCR 08:52
PROVIDERS: ATTEND General Practice
DX: C85.19 Unspecified B-cell lymphoma, extranodal and solid organ sites (principal); Z92.21 Personal history of antineoplastic chemotherapy; Z92.3 Personal history of irradiation; Z79.899 Other long term (current) drug therapy

== ENCOUNTER → 2024-09-28 | Outpatient (CLI) | payer MEDICARE ==
[~2024-09-28] MED LIST changes: +GABA-1172 PO; -GABA-282 PO
== END ==
LOC: M ONCR 12:43
PROVIDERS: ATTEND General Practice
DX: C83.390 Primary central nervous system lymphoma (principal); Z92.21 Personal history of antineoplastic chemotherapy; Z92.3 Personal history of irradiation; Z79.82 Long term (current) use of aspirin; Z79.899 Other long term (current) drug therapy

== ENCOUNTER → 2025-03-29 | Outpatient (CLI) | payer MEDICARE ==
[~2025-03-29] MED LIST changes: +ACYC-438 PO; -ACYC1TAB PO; +BUPR-670 PO; -BUPR1TAB52 PO
== END ==
LOC: M ONCR 12:44
PROVIDERS: ATTEND General Practice
DX: C85.19 Unspecified B-cell lymphoma, extranodal and solid organ sites (principal); Z92.21 Personal history of antineoplastic chemotherapy; Z92.3 Personal history of irradiation; Z79.82 Long term (current) use of aspirin; Z79.899 Other long term (current) drug therapy